=== PATIENT | female | born 1940 | race African-American/Black ===

== ENCOUNTER 2017-01-16 00:43 | Inpatient (IN) | payer OTHER, MEDICAID ==
[~2017-01-16] VITALS: Ht 171.4 cm; Wt 69.4 kg
[~2017-01-16 00:43] MED LIST: CHLO25TA27 PO; CLON0.1T PO; CLON0.3T TD; CLOP75TA33 PO; LOSA100T14 PO; METO100T5 PO; OMEP20CA10 PO
[2017-01-16] MEDS ORDERED: ASPIRIN 81MG TABLET PO ONE (01:00)
[2017-01-16] MEDS ORDERED: NITROGLYCERIN OINT 1GM/INCH UDPKT TD ONE (01:00)
[2017-01-16 01:18] LABS: CLARITY URINE CLEAR (CLEAR); COLOR URINE YELLOW (YELLOW); GLUCOSE URINE NEGATIVE (NEGATIVE); KETONES URINE NEGATIVE (NEGATIVE); LEUKOCYTE ESTERASE URINE NEGATIVE (NEGATIVE); NITRITE URINE NEGATIVE (NEGATIVE); OCCULT BLOOD URINE TRACE (NEGATIVE); PH URINE 5.5 (4.5-8.0); PROTEIN URINE NEGATIVE (NEGATIVE); SPECIFIC GRAVITY URINE 1.009 (1.005-1.030); UROBILINOGEN URINE 0.2 E.U./dL (0.2-1.0)
[2017-01-16 01:26] LABS: *AMPHETAMINES SCREEN URINE NEGATIVE (NEGATIVE); *BARBITURATES SCREEN URINE NEGATIVE (NEGATIVE); *BENZODIAZEPINES SCREEN URINE NEGATIVE (NEGATIVE); *COCAINE SCREEN URINE NEGATIVE (NEGATIVE); CANNABINOID URINE SCREEN NEGATIVE (NEGATIVE); METHADONE URINE SCREEN NEGATIVE (NEGATIVE); OPIATES URINE SCREEN NEGATIVE (NEGATIVE); PHENCYCLIDINE URINE SCREEN NEGATIVE (NEGATIVE)
[2017-01-16 01:30] LABS: BASOPHILS % 0.7 % (0.0-2.0); HEMOGLOBIN. 12.5 g/dL (12.0-16.0); LYMPHOCYTES % 45.6 % (20.0-50.0); MEAN CORPUSCULAR HEMOGLOBIN 30.7 pg (28.0-32.0); MEAN CORPUSCULAR VOLUME 90.6 fL (81.0-99.0); MEAN PLATELET VOLUME 7.4 fl (7.4-10.4); MONOCYTES % 11.2 % (2.0-8.0); NEUTROPHILS % 38.5 % (40.0-76.0); PLATELET 223 x1000/uL (130-400); RED BLOOD CELL COUNT 4.08 mill/uL (4.2-5.4)
[2017-01-16 01:40] LABS: D-DIMER 0.29 mg/L FEU (<0.50); PARTIAL THROMBOPLASTIN TIME 27.9 sec (23.4-31.0); PROTHROMBIN TIME 10.9 sec (9.4-11.6)
[2017-01-16 01:41] LABS: CARBON DIOXIDE 28 mEq/L (21-32); CHLORIDE 99 mEq/L (98-107); ETHANOL BLOOD < 10 mg/dL; TROPONIN I < 0.02 ng/mL (0.00-0.04)
[2017-01-16] MEDS ORDERED: LABETALOL HCL 20MG/4ML CARPUJECT IV ONE (02:15)
[2017-01-16] MEDS ORDERED: ACETAMINOPHEN 325MG TABLET PO PRN (05:30)
[2017-01-16] MEDS ORDERED: IPRATROPIUM/ALBUTEROL 0.5-3(2.5)MG/3ML NEB INH PRN (05:30)
[2017-01-16] MEDS ORDERED: CLONIDINE HCL 0.1MG/24HR PATCH TD ONE (05:30)
[2017-01-16] MEDS ORDERED: CLONIDINE 0.1MG TABLET PO SCH (07:50)
[2017-01-16 08:21] LABS: BASOPHILS % 1.2 % (0.0-2.0); EOSINOPHILS % 1.2 % (0.0-5.0); HEMATOCRIT. 40.1 % (36.0-48.0); HEMOGLOBIN. 13.5 g/dL (12.0-16.0); LYMPHOCYTES % 48.7 % (20.0-50.0); MEAN CORPUSCULAR HEMOGLOBIN 30.3 pg (28.0-32.0); MEAN CORPUSCULAR VOLUME 89.8 fL (81.0-99.0); MEAN PLATELET VOLUME 7.4 fl (7.4-10.4); MONOCYTES % 9.9 % (2.0-8.0); PLATELET 237 x1000/uL (130-400); RED BLOOD CELL COUNT 4.46 mill/uL (4.2-5.4); RED CELL DISTRIBUTION WIDTH 14.3 % (11.6-14.6)
[2017-01-16 08:33] LABS: CARBON DIOXIDE 25 mEq/L (21-32); CHLORIDE 103 mEq/L (98-107); HDL CHOLESTEROL 63 mg/dL (40-59); LDL CHOLESTEROL 82 mg/dL (5-100); TROPONIN I < 0.02 ng/mL (0.00-0.04)
[2017-01-16 09:00] VITALS: BP 147/69
[2017-01-16] MEDS ORDERED: CLOPIDOGREL 75MG TABLET PO SCH (09:00)
[2017-01-16] MEDS ORDERED: LOSARTAN POTASSIUM 100 MG TABLET PO SCH (09:00)
[2017-01-16] MEDS ORDERED: CLONIDINE 0.1MG TABLET PO PRN (09:19)
[2017-01-16] MEDS: SODIUM CHLORIDE 0.9% INJ 3ML FLUSH IVF SCH ×2 (09:50→13:06)
[2017-01-16] MEDS ORDERED: ENOXAPARIN 40MG/0.4ML SYR SUBCUT SCH (10:00)
[2017-01-16] MEDS ORDERED: METOPROLOL TARTRATE 100MG TABLET PO SCH (10:00)
[2017-01-16] MEDS ORDERED: OMEPRAZOLE 20MG CAPSULE EXTENDED RELEASE PO SCH (10:00)
[2017-01-16] MEDS ORDERED: DEXTROSE 50% WATER 50ML SYRINGE IV PRN (10:30)
[2017-01-16] MEDS: BLOOD SUGAR DIAGNOSTIC STRIP TEST SCH ×2 (12:33→17:01)
[2017-01-16] MEDS: INSULIN LISPRO 100 UNITS/ML SUBCUT SCH ×2 (13:06→17:01)
[2017-01-16 15:25] VITALS: BP 158/67
[2017-01-16 17:18] VITALS: BP 155/64
[2017-02-05] MEDS ORDERED: AMLO10TA80 PO (11:20)
[2017-02-05] MEDS ORDERED: HYDR12.54 PO (13:53)
== END 2017-01-16 18:10 | disposition home or self-care (01) | DRG 305 ==
LOC: ER 00:43 → 6WST 02:48 → ENRESERV 06:05 → CANBEDREQ 08:39
PROVIDERS: ADMIT Ophthalmology; ATTEND Ophthalmology
DX: I16.0 Hypertensive urgency (principal); E11.9 Type 2 diabetes mellitus without complications; R07.89 Other chest pain; I10 Essential (primary) hypertension; M19.90 Unspecified osteoarthritis, unspecified site; Z83.3 Family history of diabetes mellitus; Z82.49 Family history of ischemic heart disease and other diseases of the circulatory system; Z88.6 Allergy status to analgesic agent; Z88.0 Allergy status to penicillin; Z88.1 Allergy status to other antibiotic agents; Z88.8 Allergy status to other drugs, medicaments and biological substances
CPT/HCPCS: 36415; 70450; 71010; 80048; 80053; 80061; 80305; 81001; 82962; 83605; 83690; 83880; 84484; 85025; 85379; 85610; 85730; 93005; 96374; 99291; G0482; J1650; J1815; J3490

== ENCOUNTER 2017-01-20 01:51 | Emergency (ER) | payer OTHER, MEDICAID ==
[~2017-01-20] VITALS: Ht 177.8 cm; Wt 79.0 kg
[~2017-01-20 01:51] MED LIST changes: -CLON0.3T TD
[2017-01-20] MEDS ORDERED: ENALAPRIL 2.5MG/2ML VIAL 2ML IV ONE (04:45)
[2017-01-20 04:53] LABS: BASOPHILS % 0.9 % (0.0-2.0); EOSINOPHILS % 1.3 % (0.0-5.0); HEMATOCRIT. 37.6 % (36.0-48.0); HEMOGLOBIN. 12.6 g/dL (12.0-16.0); LYMPHOCYTES % 30.9 % (20.0-50.0); MEAN CORPUSCULAR HEMOGLOBIN 30.4 pg (28.0-32.0); MEAN CORPUSCULAR VOLUME 90.9 fL (81.0-99.0); MEAN PLATELET VOLUME 7.2 fl (7.4-10.4); NEUTROPHILS % 56.9 % (40.0-76.0); PLATELET 210 x1000/uL (130-400); RED BLOOD CELL COUNT 4.14 mill/uL (4.2-5.4); RED CELL DISTRIBUTION WIDTH 14.2 % (11.6-14.6)
[2017-01-20 05:04] LABS: CARBON DIOXIDE 27 mEq/L (21-32); CHLORIDE 103 mEq/L (98-107)
[2017-01-20 09:00] VITALS: BP 196/94
[2017-02-05] MEDS ORDERED: AMLO10TA80 PO (11:20)
[2017-02-05] MEDS ORDERED: HYDR12.54 PO (13:53)
== END 2017-01-20 09:27 | disposition home or self-care (01) ==
LOC: ER 01:51
DX: I10 Essential (primary) hypertension (principal); E11.9 Type 2 diabetes mellitus without complications; F11.10 Opioid abuse, uncomplicated; Z88.0 Allergy status to penicillin; Z88.6 Allergy status to analgesic agent; Z88.1 Allergy status to other antibiotic agents
CPT/HCPCS: 36415; 70450; 71010; 80048; 82962; 85025; 93005; 96374; 99285; J3490

== ENCOUNTER 2017-05-02 02:33 | Emergency (ER) | payer OTHER, MEDICAID ==
[~2017-05-02] VITALS: Ht 170.2 cm; Wt 70.0 kg
[~2017-05-02 02:33] MED LIST changes: +AMLO10TA80 PO; +HYDR12.54 PO; +METO100T16 PO; -METO100T5 PO
[2017-05-02 03:49] LABS: BASOPHILS % 0.7 % (0.0-2.0); EOSINOPHILS % 3.2 % (0.0-5.0); HEMATOCRIT. 36.3 % (36.0-48.0); HEMOGLOBIN. 12.2 g/dL (12.0-16.0); LYMPHOCYTES % 31.4 % (20.0-50.0); MEAN CORPUSCULAR HEMOGLOBIN 30.2 pg (28.0-32.0); MEAN CORPUSCULAR VOLUME 89.5 fL (81.0-99.0); MEAN PLATELET VOLUME 6.7 fl (7.4-10.4); MONOCYTES % 12.6 % (2.0-8.0); NEUTROPHILS % 52.1 % (40.0-76.0); PLATELET 240 x1000/uL (130-400); RED BLOOD CELL COUNT 4.05 mill/uL (4.2-5.4)
[2017-05-02 03:50] LABS: CHLORIDE 93 mEq/L (98-107)
[2017-05-02 06:18] VITALS: BP 150/93
== END 2017-05-02 06:30 | disposition home or self-care (01) ==
LOC: ER 02:40
DX: I11.9 Hypertensive heart disease without heart failure (principal); E11.9 Type 2 diabetes mellitus without complications; Z88.6 Allergy status to analgesic agent; Z88.0 Allergy status to penicillin
CPT/HCPCS: 36415; 80048; 85025; 99284

== ENCOUNTER 2017-10-20 23:10 | Emergency (ER) | payer OTHER, MEDICAID ==
[~2017-10-20] VITALS: Ht 177.8 cm; Wt 68.0 kg
[2017-10-21] MEDS ORDERED: THROMBIN (BOVINE) 5000 UNITS/VIAL TOP ONE (01:15)
[2017-10-21] MEDS ORDERED: CLONIDINE 0.2MG TABLET PO ONE (01:15)
[2017-10-21 04:37] VITALS: BP 138/68
== END 2017-10-21 04:38 | disposition home or self-care (01) ==
LOC: ER 23:10
DX: I16.0 Hypertensive urgency (principal); E11.9 Type 2 diabetes mellitus without complications; I10 Essential (primary) hypertension; R04.0 Epistaxis; Z88.0 Allergy status to penicillin; Z88.8 Allergy status to other drugs, medicaments and biological substances; Z88.5 Allergy status to narcotic agent; Z88.6 Allergy status to analgesic agent
CPT/HCPCS: 82962; 99283; J3490

== ENCOUNTER 2018-01-18 21:38 | Emergency (ER) | payer OTHER, MEDICAID ==
[~2018-01-18] VITALS: Ht 175.3 cm; Wt 75.0 kg
[2018-01-18] MEDS ORDERED: ONDANSETRON HCL 4MG/2ML INJ IV STA (22:41)
[2018-01-18] MEDS ORDERED: MORPHINE SULFATE 4 MG/ML CPJ (NOT FOR IM USE) IV STA (22:41)
[2018-01-18] MEDS ORDERED: CLONIDINE 0.1MG TABLET PO ONE (22:45)
[2018-01-18 23:02] LABS: BASOPHILS % 0.6 % (0.0-2.0); EOSINOPHILS % 2.3 % (0.0-5.0); HEMATOCRIT. 35.5 % (36.0-48.0); HEMOGLOBIN. 12.2 g/dL (12.0-16.0); LYMPHOCYTES % 41.4 % (20.0-50.0); MEAN CORPUSCULAR VOLUME 90.4 fL (81.0-99.0); MEAN PLATELET VOLUME 6.8 fl (7.4-10.4); MONOCYTES % 13.3 % (2.0-8.0); NEUTROPHILS % 42.4 % (40.0-76.0); PLATELET 223 x1000/uL (130-400); RED BLOOD CELL COUNT 3.93 mill/uL (4.2-5.4); RED CELL DISTRIBUTION WIDTH 14.6 % (11.6-14.6)
[2018-01-18 23:10] LABS: CHLORIDE 94 mEq/L (98-107)
[2018-01-19] MEDS ORDERED: ACETAMINOPHEN 325MG TABLET PO ONE (01:45)
[2018-01-19 01:57] VITALS: BP 151/62
== END 2018-01-19 02:03 | disposition home or self-care (01) ==
LOC: ER 21:38
DX: I10 Essential (primary) hypertension (principal); E11.9 Type 2 diabetes mellitus without complications; Z88.0 Allergy status to penicillin; Z88.5 Allergy status to narcotic agent; Z88.6 Allergy status to analgesic agent
CPT/HCPCS: 36415; 70450; 71045; 80048; 85025; 93005; 96374; 99285; J2405; J2270

== ENCOUNTER 2018-03-10 01:40 | Emergency (ER) | payer OTHER, MEDICAID ==
[~2018-03-10] VITALS: Ht 170.2 cm; Wt 73.0 kg
[2018-03-10 02:27] LABS: CHLORIDE 101 mEq/L (98-107)
[2018-03-10 03:04] LABS: BASOPHILS % 0.4 % (0.0-2.0); EOSINOPHILS % 1.3 % (0.0-5.0); HEMATOCRIT. 37.4 % (36.0-48.0); HEMOGLOBIN. 12.7 g/dL (12.0-16.0); LYMPHOCYTES % 37.3 % (20.0-50.0); MEAN CORPUSCULAR HEMOGLOBIN 31.5 pg (28.0-32.0); MEAN PLATELET VOLUME 7.2 fl (7.4-10.4); MONOCYTES % 11.2 % (2.0-8.0); NEUTROPHILS % 49.8 % (40.0-76.0); PLATELET 226 x1000/uL (130-400); RED BLOOD CELL COUNT 4.03 mill/uL (4.2-5.4)
[2018-03-10 03:11] LABS: PROTHROMBIN TIME 10.3 sec (9.1-11.1)
[2018-03-10 03:12] LABS: CLARITY URINE CLEAR (CLEAR); COLOR URINE YELLOW (YELLOW); KETONES URINE NEGATIVE (NEGATIVE); LEUKOCYTE ESTERASE URINE TRACE (NEGATIVE); NITRITE URINE NEGATIVE (NEGATIVE); OCCULT BLOOD URINE 1+ (NEGATIVE); PH URINE 7.5 (4.5-8.0); PROTEIN URINE NEGATIVE (NEGATIVE); SPECIFIC GRAVITY URINE 1.005 (1.005-1.030); UROBILINOGEN URINE 0.2 E.U./dL (0.2-1.0)
[2018-03-10] MEDS ORDERED: CLONIDINE 0.1MG TABLET PO ONE (05:00)
[2018-03-10] MEDS ORDERED: HYDRALAZINE HCL 50MG TABLET PO ONE (05:45)
[2018-03-10 06:23] VITALS: BP 166/73
== END 2018-03-10 06:35 | disposition home or self-care (01) ==
LOC: ER 01:40
DX: R10.30 Lower abdominal pain, unspecified (principal); R30.0 Dysuria; R39.15 Urgency of urination; Z88.0 Allergy status to penicillin; I10 Essential (primary) hypertension; E11.9 Type 2 diabetes mellitus without complications; Z88.1 Allergy status to other antibiotic agents; Z79.82 Long term (current) use of aspirin; Z88.5 Allergy status to narcotic agent; Z88.8 Allergy status to other drugs, medicaments and biological substances; Z79.899 Other long term (current) drug therapy
CPT/HCPCS: 36415; 82962; 99283

== ENCOUNTER 2018-06-15 06:11 | Emergency (ER) | payer MEDICARE, MEDICAID ==
[~2018-06-15] VITALS: Ht 177.8 cm; Wt 91.0 kg
[2018-06-15] MEDS ORDERED: DIAZEPAM 2 MG TABLET PO ONE (07:00)
[2018-06-15 07:23] LABS: CHLORIDE 98 mEq/L (98-107); EOSINOPHILS % 2.2 % (0.0-5.0); HEMATOCRIT. 38.6 % (36.0-48.0); HEMOGLOBIN. 12.9 g/dL (12.0-16.0); LYMPHOCYTES % 38.6 % (20.0-50.0); MEAN CORPUSCULAR VOLUME 92.4 fL (81.0-99.0); MEAN PLATELET VOLUME 7.1 fl (7.4-10.4); MONOCYTES % 10.4 % (2.0-8.0); NEUTROPHILS % 47.8 % (40.0-76.0); PLATELET 268 x1000/uL (130-400); RED BLOOD CELL COUNT 4.18 mill/uL (4.2-5.4)
[2018-06-15 07:23] LABS: CLARITY URINE CLEAR (CLEAR); COLOR URINE YELLOW (YELLOW); KETONES URINE NEGATIVE (NEGATIVE); LEUKOCYTE ESTERASE URINE NEGATIVE (NEGATIVE); NITRITE URINE NEGATIVE (NEGATIVE); OCCULT BLOOD URINE TRACE (NEGATIVE); PH URINE 8.5 (4.5-8.0); PROTEIN URINE TRACE (NEGATIVE); SPECIFIC GRAVITY URINE 1.007 (1.005-1.030); UROBILINOGEN URINE 0.2 E.U./dL (0.2-1.0)
[2018-06-15 07:27] LABS: PARTIAL THROMBOPLASTIN TIME 28.6 sec (23.4-31.0); PROTHROMBIN TIME 10.4 sec (9.1-11.1)
[2018-06-15 10:09] VITALS: BP 169/69
== END 2018-06-15 10:15 | disposition home or self-care (01) ==
LOC: ER 06:11
DX: I10 Essential (primary) hypertension (principal); E11.9 Type 2 diabetes mellitus without complications; Z88.0 Allergy status to penicillin; Z88.6 Allergy status to analgesic agent; Z88.5 Allergy status to narcotic agent
CPT/HCPCS: 36415; 71045; 83880; 84484; 99284

== ENCOUNTER 2018-06-25 03:35 | Emergency (ER) | payer MEDICARE, MEDICAID ==
[~2018-06-25] VITALS: Ht 170.2 cm; Wt 98.4 kg
[2018-06-25] MEDS ORDERED: ACETAMINOPHEN 325MG TABLET PO STA (04:32)
[2018-06-25 04:52] LABS: BASOPHILS % 0.6 % (0.0-2.0); EOSINOPHILS % 2.2 % (0.0-5.0); HEMATOCRIT. 34.1 % (36.0-48.0); HEMOGLOBIN. 11.5 g/dL (12.0-16.0); MEAN CORPUSCULAR HEMOGLOBIN 30.8 pg (28.0-32.0); MEAN CORPUSCULAR VOLUME 91.6 fL (81.0-99.0); MEAN PLATELET VOLUME 6.8 fl (7.4-10.4); MONOCYTES % 13.2 % (2.0-8.0); PLATELET 226 x1000/uL (130-400); RED BLOOD CELL COUNT 3.72 mill/uL (4.2-5.4)
[2018-06-25 04:59] LABS: CHLORIDE 92 mEq/L (98-107)
[2018-06-25 05:01] LABS: INR 1.1; PROTHROMBIN TIME 10.6 sec (9.1-11.1)
[2018-06-25] MEDS ORDERED: SODIUM CHLORIDE 0.9% 500 ML IV ONE (05:15)
[2018-06-25] MEDS ORDERED: POTASSIUM CHLORIDE 20MEQ TABLET SR PO ONE (05:15)
[2018-06-25 09:55] VITALS: BP 142/56
== END 2018-06-25 10:14 | disposition home or self-care (01) ==
LOC: ER 03:35
DX: S29.012A Strain of muscle and tendon of back wall of thorax, initial encounter (principal); E87.1 Hypo-osmolality and hyponatremia; E87.6 Hypokalemia; E11.9 Type 2 diabetes mellitus without complications; I10 Essential (primary) hypertension; E87.8 Other disorders of electrolyte and fluid balance, not elsewhere classified; X58.XXXA Exposure to other specified factors, initial encounter; Y93.89 Activity, other specified; Y92.89 Other specified places as the place of occurrence of the external cause; Y99.8 Other external cause status; Z88.0 Allergy status to penicillin; Z88.6 Allergy status to analgesic agent; Z88.5 Allergy status to narcotic agent; Z88.8 Allergy status to other drugs, medicaments and biological substances; Z79.899 Other long term (current) drug therapy
CPT/HCPCS: 36415; 71045; 83880; 84484; 93005; 99284

== ENCOUNTER 2018-07-01 03:21 | Emergency (ER) | payer MEDICARE, MEDICAID ==
[~2018-07-01] VITALS: Ht 170.2 cm; Wt 72.0 kg
[2018-07-01] MEDS ORDERED: ACETAMINOPHEN 325MG TABLET PO STA (05:38)
[2018-07-01 06:13] LABS: CLARITY URINE CLEAR (CLEAR); COLOR URINE YELLOW (YELLOW); KETONES URINE NEGATIVE (NEGATIVE); LEUKOCYTE ESTERASE URINE TRACE (NEGATIVE); NITRITE URINE NEGATIVE (NEGATIVE); OCCULT BLOOD URINE 1+ (NEGATIVE); PROTEIN URINE NEGATIVE (NEGATIVE); SPECIFIC GRAVITY URINE 1.005 (1.005-1.030); UROBILINOGEN URINE 0.2 E.U./dL (0.2-1.0)
[2018-07-01 06:52] LABS: BASOPHILS % 0.7 % (0.0-2.0); EOSINOPHILS % 1.1 % (0.0-5.0); HEMATOCRIT. 38.5 % (36.0-48.0); MEAN CORPUSCULAR VOLUME 91.7 fL (81.0-99.0); MEAN PLATELET VOLUME 6.9 fl (7.4-10.4); MONOCYTES % 9.5 % (2.0-8.0); NEUTROPHILS % 36.7 % (40.0-76.0); PLATELET 251 x1000/uL (130-400)
[2018-07-01 06:58] LABS: CHLORIDE 95 mEq/L (98-107)
[2018-07-01] MEDS ORDERED: POTASSIUM CHLORIDE 20MEQ TABLET SR PO ONE (07:45)
[2018-07-01 09:00] VITALS: BP 179/83
[2018-07-01] MEDS ORDERED: IOHEXOL-300 100 ML BOTTLE ONE (09:16)
== END 2018-07-01 11:19 | disposition home or self-care (01) ==
LOC: ER 03:21
DX: R10.2 Pelvic and perineal pain (principal); E27.8 Other specified disorders of adrenal gland; E87.6 Hypokalemia; I11.9 Hypertensive heart disease without heart failure; E11.9 Type 2 diabetes mellitus without complications; D25.9 Leiomyoma of uterus, unspecified; Z88.0 Allergy status to penicillin; Z88.5 Allergy status to narcotic agent; Z88.6 Allergy status to analgesic agent
CPT/HCPCS: 36415; 74177; 80053; 81003; 83690; 85025; 99284; Q9967

== ENCOUNTER 2018-08-28 01:23 | Emergency (ER) | payer MEDICARE, MEDICAID ==
[~2018-08-28] VITALS: Ht 177.8 cm; Wt 67.0 kg
[2018-08-28] MEDS ORDERED: ACETAMINOPHEN 500MG TABLET PO ONE (02:15)
[2018-08-28 02:38] LABS: BASOPHILS % 0.2 % (0.0-2.0); EOSINOPHILS % 3.6 % (0.0-5.0); HEMATOCRIT. 35.3 % (36.0-48.0); HEMOGLOBIN. 12.3 g/dL (12.0-16.0); LYMPHOCYTES % 37.2 % (20.0-50.0); MEAN CORPUSCULAR HEMOGLOBIN 31.4 pg (28.0-32.0); MEAN CORPUSCULAR VOLUME 90.6 fL (81.0-99.0); MEAN PLATELET VOLUME 7.4 fl (7.4-10.4); MONOCYTES % 14.4 % (2.0-8.0); NEUTROPHILS % 44.6 % (40.0-76.0); PLATELET 232 x1000/uL (130-400); RED CELL DISTRIBUTION WIDTH 13.7 % (11.6-14.6)
[2018-08-28 02:45] LABS: CHLORIDE 102 mEq/L (98-107)
[2018-08-28 07:34] VITALS: BP 169/76
== END 2018-08-28 07:35 | disposition home or self-care (01) ==
LOC: ER 01:23
DX: M25.551 Pain in right hip (principal); M25.561 Pain in right knee; I10 Essential (primary) hypertension
CPT/HCPCS: 36415; 71045; 80048; 99284

== ENCOUNTER 2019-01-23 02:11 | Emergency (ER) | payer MEDICARE, MEDICAID ==
[~2019-01-23] VITALS: Ht 172.7 cm; Wt 81.0 kg
[~2019-01-23 02:11] MED LIST changes: -LOSA100T14 PO; +LOSA100T32 PO; -OMEP20CA10 PO; +OMEP20CA5 PO
[2019-01-23] MEDS ORDERED: ACETAMINOPHEN 500MG TABLET PO ONE (04:00)
[2019-01-23 04:32] VITALS: BP 189/70
== END 2019-01-23 04:34 | disposition home or self-care (01) ==
LOC: ER 02:11
DX: I10 Essential (primary) hypertension (principal); J45.909 Unspecified asthma, uncomplicated; E11.9 Type 2 diabetes mellitus without complications; I11.9 Hypertensive heart disease without heart failure; Z88.0 Allergy status to penicillin; Z88.1 Allergy status to other antibiotic agents; Z88.6 Allergy status to analgesic agent; Z88.5 Allergy status to narcotic agent; Z79.899 Other long term (current) drug therapy
CPT/HCPCS: 99283

== ENCOUNTER 2019-01-24 17:54 | Emergency (ER) | payer MEDICARE, MEDICAID ==
[~2019-01-24] VITALS: Ht 170.2 cm; Wt 72.0 kg
[2019-01-24] MEDS ORDERED: ACETAMINOPHEN 325MG TABLET PO STA (18:14)
[2019-01-24 19:14] LABS: CHLORIDE 103 mEq/L (98-107)
[2019-01-24 19:16] LABS: BASOPHILS % 0.6 % (0.0-2.0); EOSINOPHILS % 2.9 % (0.0-5.0); HEMATOCRIT. 38.9 % (36.0-48.0); HEMOGLOBIN. 12.9 g/dL (12.0-16.0); LYMPHOCYTES % 37.9 % (20.0-50.0); MEAN CORPUSCULAR HEMOGLOBIN 30.3 pg (28.0-32.0); MEAN PLATELET VOLUME 7.6 fl (7.4-10.4); MONOCYTES % 10.1 % (2.0-8.0); NEUTROPHILS % 48.5 % (40.0-76.0); PLATELET 243 x1000/uL (130-400); RED BLOOD CELL COUNT 4.27 mill/uL (4.2-5.4); RED CELL DISTRIBUTION WIDTH 14.1 % (11.6-14.6)
[2019-01-24] MEDS ORDERED: ACETAMINOPHEN 325MG TABLET PO ONE (22:00)
[2019-01-24 22:02] VITALS: BP 138/61
== END 2019-01-24 23:03 | disposition home or self-care (01) ==
LOC: ER 17:54
DX: E11.40 Type 2 diabetes mellitus with diabetic neuropathy, unspecified (principal); I10 Essential (primary) hypertension; Z88.6 Allergy status to analgesic agent; Z88.5 Allergy status to narcotic agent; Z88.0 Allergy status to penicillin
CPT/HCPCS: 36415; 99283

== ENCOUNTER 2019-02-24 07:05 | Emergency (ER) | payer MEDICARE, MEDICAID ==
[~2019-02-24] VITALS: Ht 180.3 cm; Wt 82.0 kg
[2019-02-24 09:50] VITALS: BP 141/120
== END 2019-02-24 10:30 | disposition home or self-care (01) ==
LOC: ER 07:16
DX: R04.0 Epistaxis (principal); I10 Essential (primary) hypertension; E11.9 Type 2 diabetes mellitus without complications; J44.9 Chronic obstructive pulmonary disease, unspecified; Z88.6 Allergy status to analgesic agent; Z88.0 Allergy status to penicillin; Z88.5 Allergy status to narcotic agent
CPT/HCPCS: 99283

== ENCOUNTER 2019-04-01 05:36 | Inpatient (IN) | payer MEDICARE, MEDICAID ==
[~2019-04-01] VITALS: Ht 170.2 cm; Wt 77.6 kg
[2019-04-01 06:33] LABS: CLARITY URINE CLEAR (CLEAR); COLOR URINE YELLOW (YELLOW); KETONES URINE NEGATIVE (NEGATIVE); LEUKOCYTE ESTERASE URINE NEGATIVE (NEGATIVE); NITRITE URINE POSITIVE (NEGATIVE); OCCULT BLOOD URINE TRACE (NEGATIVE); PH URINE 7.5 (4.5-8.0); PROTEIN URINE NEGATIVE (NEGATIVE); SPECIFIC GRAVITY URINE 1.008 (1.005-1.030); UROBILINOGEN URINE 0.2 E.U./dL (0.2-1.0)
[2019-04-01 06:34] LABS: BASOPHILS % 1.1 % (0.0-2.0); EOSINOPHILS % 2.6 % (0.0-5.0); HEMATOCRIT. 39.7 % (36.0-48.0); HEMOGLOBIN. 13.3 g/dL (12.0-16.0); LYMPHOCYTES % 42.5 % (20.0-50.0); MEAN CORPUSCULAR HEMOGLOBIN 30.4 pg (28.0-32.0); MEAN CORPUSCULAR VOLUME 90.6 fL (81.0-99.0); MEAN PLATELET VOLUME 7.1 fl (7.4-10.4); MONOCYTES % 8.6 % (2.0-8.0); NEUTROPHILS % 45.2 % (40.0-76.0); PLATELET 258 x1000/uL (130-400); RED BLOOD CELL COUNT 4.38 mill/uL (4.2-5.4); RED CELL DISTRIBUTION WIDTH 14.6 % (11.6-14.6)
[2019-04-01] MEDS ORDERED: ALBUTEROL (0.083%) 2.5MG/3ML NEB HHN STA (06:36)
[2019-04-01] MEDS ORDERED: IPRATROPIUM BROMIDE (0.02%) 0.5MG/2.5ML NEB HHN STA (06:36)
[2019-04-01] MEDS ORDERED: LABETALOL HCL 200MG TABLET PO STA (06:36)
[2019-04-01 06:39] LABS: PROTHROMBIN TIME 10.4 sec (9.6-11.0)
[2019-04-01 06:43] LABS: CHLORIDE 106 mEq/L (98-107)
[2019-04-01] MEDS ORDERED: MINOXIDIL 2.5MG TABLET PO ONE (06:45)
[2019-04-01] MEDS ORDERED: MAGNESIUM 2 G PREMIX 50 ML IV ONE (06:45)
[2019-04-01] MEDS ORDERED: LEVOFLOXACIN 500MG PREMIX 100 ML IV ONE (06:45)
[2019-04-01] MEDS ORDERED: NIFEDIPINE XL 60MG TAB PO ONE (06:45)
[2019-04-01] MEDS ORDERED: GLIPIZIDE XL 2.5MG TABLET PO ONE (08:00)
[2019-04-01] MEDS ORDERED: SODIUM CHLORIDE 0.9% 1,000 ML IV SCH (10:37)
[2019-04-01] MEDS ORDERED: CLONIDINE 0.1MG TABLET PO PRN (10:45)
[2019-04-01] MEDS ORDERED: ONDANSETRON HCL 4MG/2ML INJ IV PRN (10:45)
[2019-04-01] MEDS ORDERED: GUAIFENESIN 200MG/10ML SUGAR FREE UDC PO PRN (10:45)
[2019-04-01] MEDS ORDERED: DOCUSATE SODIUM 100MG CAPSULE PO PRN (10:45)
[2019-04-01] MEDS ORDERED: IPRATROPIUM/ALBUTEROL 0.5-3(2.5)MG/3ML NEB HHN SCH (10:45)
[2019-04-01] MEDS ORDERED: ENOXAPARIN 40MG/0.4ML SYR SUBCUT SCH (10:45)
[2019-04-01] MEDS: OMEPRAZOLE 20MG CAPSULE EXTENDED RELEASE PO SCH (11:15)
[2019-04-01] MEDS ORDERED: LOSARTAN POTASSIUM 100 MG TABLET PO SCH (11:15)
[2019-04-01] MEDS ORDERED: CLONIDINE 0.1MG TABLET PO SCH (11:15)
[2019-04-01] MEDS ORDERED: DEXTROSE 50% WATER 50ML SYRINGE IV PRN (11:30)
[2019-04-01] MEDS ORDERED: ENOXAPARIN 40MG/0.4ML SYR SUBCUT NR (12:00)
[2019-04-01] MEDS ORDERED: OMEPRAZOLE 20MG CAPSULE EXTENDED RELEASE PO NR (12:00)
[2019-04-01] MEDS: BLOOD SUGAR DIAGNOSTIC STRIP TEST SCH ×3 (13:00→20:44)
[2019-04-01] MEDS ORDERED: LOSARTAN POTASSIUM 100 MG TABLET PO NR (13:00)
[2019-04-01] MEDS: INSULIN LISPRO 100 UNITS/ML SUBCUT SCH ×3 (13:20→21:21)
[2019-04-01] MEDS: METHYLPREDNISOLONE SOD SUCC 40 MG/ML VIAL IV SCH ×2 (14:30→18:41)
[2019-04-01] MEDS: ACETAMINOPHEN 325MG TABLET PO PRN (14:42)
[2019-04-01 17:45] VITALS: BP 146/73
[2019-04-01 20:00] VITALS: BP 122/61
[2019-04-01] MEDS: ENOXAPARIN 40MG/0.4ML SYR SUBCUT SCH (20:43)
[2019-04-01] MEDS: METOPROLOL TARTRATE 100MG TABLET PO SCH (20:43)
[2019-04-01] MEDS: IPRATROPIUM/ALBUTEROL 0.5-3(2.5)MG/3ML NEB HHN SCH (21:30)
[2019-04-01 22:07] LABS: CREATINE KINASE 52 IU/L (26-192)
[2019-04-01 22:08] LABS: CREATINE KINASE MB FRACTION < 1.0 ng/mL (0.5-3.6)
[2019-04-01] MEDS ORDERED: LOSA25TA26 PO (23:34)
[2019-04-01] MEDS ORDERED: GABA-529 PO (23:34)
[2019-04-01] MEDS ORDERED: CLON1PAT11 TP (23:34)
[2019-04-01] MEDS ORDERED: LISI2.5T47 PO (23:34)
[2019-04-01] MEDS ORDERED: NIFE60TA64 PO (23:34)
[2019-04-01] MEDS ORDERED: AMA1 PO (23:34)
[2019-04-02] VITALS: BP 130/62
[2019-04-02] MEDS: IPRATROPIUM/ALBUTEROL 0.5-3(2.5)MG/3ML NEB HHN SCH ×6 (00:54→21:55)
[2019-04-02] MEDS: METHYLPREDNISOLONE SOD SUCC 40 MG/ML VIAL IV SCH ×4 (01:45→18:24)
[2019-04-02] MEDS: ACETAMINOPHEN 325MG TABLET PO PRN ×2 (03:54→22:14)
[2019-04-02 04:00] VITALS: BP 175/77
[2019-04-02] MEDS: BLOOD SUGAR DIAGNOSTIC STRIP TEST SCH ×4 (06:08→21:47)
[2019-04-02] MEDS: INSULIN LISPRO 100 UNITS/ML SUBCUT SCH ×4 (06:13→22:18)
[2019-04-02 07:58] LABS: BASOPHILS % 0.1 % (0.0-2.0); HEMATOCRIT. 33.5 % (36.0-48.0); HEMOGLOBIN. 11.2 g/dL (12.0-16.0); LYMPHOCYTES % 27.5 % (20.0-50.0); MEAN CORPUSCULAR HEMOGLOBIN 30.2 pg (28.0-32.0); MEAN CORPUSCULAR VOLUME 90.3 fL (81.0-99.0); MEAN PLATELET VOLUME 7.5 fl (7.4-10.4); MONOCYTES % 2.3 % (2.0-8.0); NEUTROPHILS % 70.1 % (40.0-76.0); PLATELET 218 x1000/uL (130-400); RED BLOOD CELL COUNT 3.71 mill/uL (4.2-5.4); RED CELL DISTRIBUTION WIDTH 14.6 % (11.6-14.6)
[2019-04-02 08:00] VITALS: BP 170/79
[2019-04-02 08:36] LABS: CHLORIDE 106 mEq/L (98-107)
[2019-04-02] MEDS ORDERED: HYDROCHLOROTHIAZIDE 12.5MG CAPSULE PO SCH (09:00)
[2019-04-02] MEDS ORDERED: MEDICATION NOT ON FORMULARY EA (Hydrochlorothiazide 1 TAB) PO SCH (09:00)
[2019-04-02] MEDS ORDERED: LEVOFLOXACIN 500MG PREMIX 100 ML IV SCH (09:00)
[2019-04-02] MEDS ORDERED: AMLODIPINE 10MG TABLET PO SCH (09:00)
[2019-04-02] MEDS: OMEPRAZOLE 20MG CAPSULE EXTENDED RELEASE PO SCH (09:54)
[2019-04-02] MEDS: CLOPIDOGREL 75MG TABLET PO SCH (09:55)
[2019-04-02] MEDS: METOPROLOL TARTRATE 100MG TABLET PO SCH ×2 (09:55→21:38)
[2019-04-02] MEDS: LOSARTAN POTASSIUM 100 MG TABLET PO SCH (09:55)
[2019-04-02] MEDS: CHLORTHALIDONE 25MG TABLET PO SCH (10:07)
[2019-04-02 12:00] VITALS: BP 173/86
[2019-04-02] MEDS: CLONIDINE 0.1MG TABLET PO SCH ×2 (14:52→21:38)
[2019-04-02 16:00] VITALS: BP 166/78
[2019-04-02 20:00] VITALS: BP 161/67
[2019-04-02] MEDS: ENOXAPARIN 40MG/0.4ML SYR SUBCUT SCH (21:40)
[2019-04-02] MEDS ORDERED: ACETAMINOPHEN 650MG/20.3ML UDC PO PRN (22:00)
[2019-04-03] VITALS: BP 148/60
[2019-04-03] MEDS: METHYLPREDNISOLONE SOD SUCC 40 MG/ML VIAL IV SCH ×3 (00:27→13:43)
[2019-04-03 04:00] VITALS: BP 171/72
[2019-04-03] MEDS: IPRATROPIUM/ALBUTEROL 0.5-3(2.5)MG/3ML NEB HHN SCH ×4 (05:10→13:03)
[2019-04-03] MEDS: ACETAMINOPHEN 325MG TABLET PO PRN (05:57)
[2019-04-03] MEDS: CLONIDINE 0.1MG TABLET PO SCH ×2 (05:58→13:43)
[2019-04-03] MEDS: BLOOD SUGAR DIAGNOSTIC STRIP TEST SCH ×2 (06:04→12:21)
[2019-04-03 08:00] VITALS: BP 188/80
[2019-04-03] MEDS ORDERED: FAMOTIDINE 20MG TABLET PO SCH (09:00)
[2019-04-03] MEDS ORDERED: LEVOFLOXACIN 500MG PREMIX 100 ML IV SCH (09:00)
[2019-04-03] MEDS: INSULIN LISPRO 100 UNITS/ML SUBCUT SCH ×2 (09:28→13:48)
[2019-04-03] MEDS: CLOPIDOGREL 75MG TABLET PO SCH (09:31)
[2019-04-03] MEDS: METOPROLOL TARTRATE 100MG TABLET PO SCH (09:32)
[2019-04-03] MEDS: LOSARTAN POTASSIUM 100 MG TABLET PO SCH (09:32)
[2019-04-03] MEDS: CHLORTHALIDONE 25MG TABLET PO SCH (09:32)
[2019-04-03 12:00] VITALS: BP 173/82
[2019-04-03] MEDS ORDERED: HYDRALAZINE HCL 50MG TABLET PO SCH (14:00)
[2019-04-03 14:28] VITALS: BP_SYST 154; BP_SYST 173; BP_DIAS 68; BP_DIAS 82
== END 2019-04-03 16:38 | disposition home or self-care (01) | DRG 192 ==
LOC: ER 05:36 → 7WST 07:54 → EDBEDREQ 08:06 → EDBEDREQTM 08:06 → ENRESERV 16:50
PROVIDERS: ADMIT Internal Medicine; ATTEND Internal Medicine
DX: J44.1 Chronic obstructive pulmonary disease with (acute) exacerbation (principal); E78.5 Hyperlipidemia, unspecified; I10 Essential (primary) hypertension; F16.10 Hallucinogen abuse, uncomplicated; E11.9 Type 2 diabetes mellitus without complications; M19.90 Unspecified osteoarthritis, unspecified site; Z59.0 Homelessness; Z87.891 Personal history of nicotine dependence; Z88.0 Allergy status to penicillin; Z79.899 Other long term (current) drug therapy
CPT/HCPCS: 36415; 71045; 80048; 80053; 81003; 82550; 82553; 82962; 83605; 83880; 84145; 84484; 85025; 87804; 93005; 93970; 96365; 96367; 97162; 99291; J1650; J1815; J1956; J2920; J3475; J7620

== ENCOUNTER 2019-04-04 23:58 | Emergency (ER) | payer MEDICARE, MEDICAID ==
[~2019-04-04] VITALS: Ht 167.6 cm; Wt 68.0 kg
[~2019-04-04 23:58] MED LIST changes: +AMA1 PO; -AMLO10TA80 PO; -CHLO25TA27 PO; -CLON0.1T PO; +CLON1PAT11 TP; -CLOP75TA33 PO; +GABA-529 PO; -HYDR12.54 PO; +LISI2.5T47 PO; -LOSA100T32 PO; +LOSA25TA26 PO; -METO100T16 PO; +NIFE-32 PO; +OMEP20CA14 PO; -OMEP20CA5 PO
[2019-04-05] MEDS ORDERED: IPRATROPIUM/ALBUTEROL 0.5-3(2.5)MG/3ML NEB HHN ONE (01:00)
[2019-04-05] MEDS ORDERED: ASPIRIN 81MG TABLET PO ONE (01:00)
[2019-04-05 01:11] LABS: BASOPHILS % 0.8 % (0.0-2.0); HEMATOCRIT. 38.6 % (36.0-48.0); HEMOGLOBIN. 12.9 g/dL (12.0-16.0); LYMPHOCYTES % 40.2 % (20.0-50.0); MEAN CORPUSCULAR HEMOGLOBIN 30.1 pg (28.0-32.0); MEAN PLATELET VOLUME 7.3 fl (7.4-10.4); MONOCYTES % 12.3 % (2.0-8.0); NEUTROPHILS % 45.7 % (40.0-76.0); PLATELET 237 x1000/uL (130-400); RED BLOOD CELL COUNT 4.28 mill/uL (4.2-5.4); RED CELL DISTRIBUTION WIDTH 14.7 % (11.6-14.6)
[2019-04-05 01:13] LABS: CHLORIDE 92 mEq/L (98-107)
[2019-04-05] MEDS ORDERED: POTASSIUM CHLORIDE 20MEQ TABLET SR PO ONE (01:45)
[2019-04-05] MEDS ORDERED: SODIUM CHLORIDE 0.9% 1,000 ML IV ONE (01:45)
[2019-04-05] MEDS ORDERED: KCL 20MEQ/100ML PREMIX 100 ML IV ONE (01:45)
[2019-04-05 09:49] VITALS: BP 129/63
== END 2019-04-05 09:50 | disposition home or self-care (01) ==
LOC: ER 23:58
DX: R07.9 Chest pain, unspecified (principal); E87.6 Hypokalemia; J44.9 Chronic obstructive pulmonary disease, unspecified; E78.5 Hyperlipidemia, unspecified; I10 Essential (primary) hypertension; E11.9 Type 2 diabetes mellitus without complications; I25.10 Atherosclerotic heart disease of native coronary artery without angina pectoris
CPT/HCPCS: 36415; 71045; 80053; 82962; 83880; 84484; 85025; 93005; 94640; 99284; J3480; J7030; J7620

== ENCOUNTER 2019-06-04 22:47 | Emergency (ER) | payer MEDICARE, MEDICAID ==
[~2019-06-04] VITALS: Ht 170.2 cm; Wt 68.0 kg
[2019-06-05] MEDS ORDERED: IPRATROPIUM BROMIDE (0.02%) 0.5MG/2.5ML NEB HHN STA (00:01)
[2019-06-05] MEDS ORDERED: ALBUTEROL (0.083%) 2.5MG/3ML NEB HHN STA (00:01)
[2019-06-05 00:36] LABS: BASOPHILS % 1.2 % (0.0-2.0); EOSINOPHILS % 2.7 % (0.0-5.0); HEMATOCRIT. 38.1 % (36.0-48.0); HEMOGLOBIN. 12.7 g/dL (12.0-16.0); LYMPHOCYTES % 34.1 % (20.0-50.0); MEAN CORPUSCULAR HEMOGLOBIN 30.4 pg (28.0-32.0); MEAN CORPUSCULAR VOLUME 91.5 fL (81.0-99.0); MEAN PLATELET VOLUME 7.4 fl (7.4-10.4); MONOCYTES % 10.8 % (2.0-8.0); NEUTROPHILS % 51.2 % (40.0-76.0); PLATELET 251 x1000/uL (130-400); RED BLOOD CELL COUNT 4.16 mill/uL (4.2-5.4); RED CELL DISTRIBUTION WIDTH 14.5 % (11.6-14.6)
[2019-06-05 01:41] LABS: CHLORIDE 106 mEq/L (98-107)
[2019-06-05] MEDS ORDERED: ACETAMINOPHEN 325MG TABLET PO ONE (03:45)
[2019-06-05] MEDS ORDERED: CLONIDINE 0.1MG TABLET PO ONE (04:00)
[2019-06-05 05:50] VITALS: BP 133/70
== END 2019-06-05 06:44 | disposition home or self-care (01) ==
LOC: ER 22:47
DX: R51 Headache (principal); I10 Essential (primary) hypertension; R10.9 Unspecified abdominal pain; E11.9 Type 2 diabetes mellitus without complications; R07.89 Other chest pain; Z88.0 Allergy status to penicillin; Z88.8 Allergy status to other drugs, medicaments and biological substances; Z79.82 Long term (current) use of aspirin; Z79.899 Other long term (current) drug therapy
CPT/HCPCS: 36415; 71045; 80053; 83880; 84484; 85025; 93005; 94640; 99285

== ENCOUNTER 2019-10-23 00:15 | Emergency (ER) | payer MEDICAID, MEDICARE ==
[~2019-10-23] VITALS: Ht 170.2 cm; Wt 73.0 kg
[~2019-10-23 00:15] MED LIST changes: +ALBU05 NEB; +ASPI-1158 PO; +CLON0.1T PO; +HYDR12.54 PO; +LABE200T28 PO; -LISI2.5T47 PO; +P50 MT; +POTA8CAP20 PO
[2019-10-23] MEDS ORDERED: ACETAMINOPHEN 325MG TABLET PO STA (01:12)
[2019-10-23 01:55] LABS: BASOPHILS % 0.5 % (0.0-2.0); EOSINOPHILS % 3.9 % (0.0-5.0); HEMATOCRIT. 34.7 % (36.0-48.0); HEMOGLOBIN. 11.7 g/dL (12.0-16.0); LYMPHOCYTES % 35.5 % (20.0-50.0); MEAN CORPUSCULAR HEMOGLOBIN 30.9 pg (28.0-32.0); MEAN CORPUSCULAR VOLUME 91.7 fL (81.0-99.0); MEAN PLATELET VOLUME 7.4 fl (7.4-10.4); NEUTROPHILS % 49.1 % (40.0-76.0); PLATELET 244 x1000/uL (130-400); RED BLOOD CELL COUNT 3.78 mill/uL (4.2-5.4); RED CELL DISTRIBUTION WIDTH 14.3 % (11.6-14.6)
[2019-10-23 01:59] LABS: CHLORIDE 106 mEq/L (98-107)
[2019-10-23 02:16] LABS: CLARITY URINE CLEAR (CLEAR); COLOR URINE YELLOW (YELLOW); KETONES URINE NEGATIVE (NEGATIVE); LEUKOCYTE ESTERASE URINE NEGATIVE (NEGATIVE); NITRITE URINE NEGATIVE (NEGATIVE); OCCULT BLOOD URINE TRACE (NEGATIVE); PH URINE 5.5 (4.5-8.0); PROTEIN URINE NEGATIVE (NEGATIVE); SPECIFIC GRAVITY URINE 1.009 (1.005-1.030); UROBILINOGEN URINE 0.2 E.U./dL (0.2-1.0)
[2019-10-23 08:03] VITALS: BP 187/76
== END 2019-10-23 08:39 | disposition home or self-care (01) ==
LOC: ER 00:15
DX: M79.89 Other specified soft tissue disorders (principal); R30.0 Dysuria; E11.9 Type 2 diabetes mellitus without complications; I10 Essential (primary) hypertension; J44.9 Chronic obstructive pulmonary disease, unspecified; Z88.0 Allergy status to penicillin; Z88.8 Allergy status to other drugs, medicaments and biological substances; Z88.1 Allergy status to other antibiotic agents; Z88.6 Allergy status to analgesic agent; Z79.899 Other long term (current) drug therapy; Z79.82 Long term (current) use of aspirin
CPT/HCPCS: 36415; 80053; 81003; 82962; 85025; 93971; 99285

== ENCOUNTER 2020-03-06 01:48 | Emergency (ER) | payer MEDICARE, MEDICAID ==
[~2020-03-06] VITALS: Ht 175.3 cm; Wt 64.3 kg
[2020-03-06 03:37] LABS: BASOPHILS % 0.4 % (0.0-2.0); EOSINOPHILS % 1.7 % (0.0-5.0); HEMATOCRIT. 34.6 % (36.0-48.0); HEMOGLOBIN. 11.7 g/dL (12.0-16.0); MEAN CORPUSCULAR HEMOGLOBIN 30.6 pg (28.0-32.0); MEAN CORPUSCULAR VOLUME 90.8 fL (81.0-99.0); MEAN PLATELET VOLUME 7.1 fl (7.4-10.4); MONOCYTES % 10.1 % (2.0-8.0); NEUTROPHILS % 52.8 % (40.0-76.0); PLATELET 250 x1000/uL (130-400); RED BLOOD CELL COUNT 3.81 mill/uL (4.2-5.4); RED CELL DISTRIBUTION WIDTH 14.1 % (11.6-14.6)
[2020-03-06 03:40] LABS: CHLORIDE 92 mEq/L (98-107)
[2020-03-06 04:12] LABS: CLARITY URINE CLEAR (CLEAR); COLOR URINE YELLOW (YELLOW); KETONES URINE NEGATIVE (NEGATIVE); LEUKOCYTE ESTERASE URINE NEGATIVE (NEGATIVE); NITRITE URINE NEGATIVE (NEGATIVE); OCCULT BLOOD URINE TRACE (NEGATIVE); PH URINE 6.5 (4.5-8.0); PROTEIN URINE NEGATIVE (NEGATIVE); UROBILINOGEN URINE 0.2 E.U./dL (0.2-1.0)
[2020-03-06] MEDS ORDERED: POTASSIUM CHLORIDE 20MEQ TABLET SR PO ONE (05:30)
[2020-03-06] MEDS ORDERED: ACETAMINOPHEN 325MG TABLET PO ONE (05:45)
[2020-03-06 10:54] VITALS: BP 138/89
== END 2020-03-06 11:01 | disposition home or self-care (01) ==
LOC: ER 01:48 → CANBEDREQ 11:06
DX: M79.10 Myalgia, unspecified site (principal); E87.6 Hypokalemia; I10 Essential (primary) hypertension; E11.9 Type 2 diabetes mellitus without complications; Z86.718 Personal history of other venous thrombosis and embolism; Z99.3 Dependence on wheelchair; Z88.6 Allergy status to analgesic agent; Z88.0 Allergy status to penicillin; Z88.5 Allergy status to narcotic agent
CPT/HCPCS: 36415; 71045; 80053; 81003; 83605; 83880; 84484; 85025; 87426; 87804; 93005; 99285

== ENCOUNTER 2020-08-26 13:15 | Inpatient (IN) | payer OTHER, MEDICAID ==
[~2020-08-26] VITALS: Ht 170.2 cm; Wt 72.6 kg
[~2020-08-26 13:15] MED LIST changes: -ASPI-1158 PO; +ASPI-1406 PO; -LABE200T28 PO; +LABE200T9 PO
[2020-08-26] MEDS ORDERED: ACETAMINOPHEN 325MG TABLET PO ONE ×2 (14:15→20:00)
[2020-08-26 17:19] LABS: BASOPHILS % 0.4 % (0.0-2.0); EOSINOPHILS % 2.2 % (0.0-5.0); HEMATOCRIT. 35.1 % (36.0-48.0); HEMOGLOBIN. 11.8 g/dL (12.0-16.0); LYMPHOCYTES % 27.4 % (20.0-50.0); MEAN CORPUSCULAR HEMOGLOBIN 30.7 pg (28.0-32.0); MEAN CORPUSCULAR VOLUME 91.2 fL (81.0-99.0); MEAN PLATELET VOLUME 7.2 fl (7.4-10.4); MONOCYTES % 7.5 % (2.0-8.0); NEUTROPHILS % 62.5 % (40.0-76.0); PLATELET 279 x1000/uL (130-400); RED BLOOD CELL COUNT 3.85 mill/uL (4.2-5.4); RED CELL DISTRIBUTION WIDTH 14.1 % (11.6-14.6)
[2020-08-26 17:27] LABS: CHLORIDE 105 mEq/L (98-107)
[2020-08-26 19:08] LABS: PROTHROMBIN TIME 10.6 sec (9.6-11.0)
[2020-08-26] MEDS ORDERED: CLONIDINE 0.1MG TABLET PO PRN (21:00)
[2020-08-26] MEDS ORDERED: DOCUSATE SODIUM 100MG CAPSULE PO PRN (21:15)
[2020-08-26] MEDS ORDERED: ONDANSETRON HCL 4MG/2ML INJ IV PRN (21:15)
[2020-08-26] MEDS ORDERED: DIPHENHYDRAMINE 50MG/ML VIAL IV PRN (21:15)
[2020-08-26] MEDS ORDERED: MORPHINE SULFATE 2 MG/ML CPJ (NOT FOR IM USE) IV PRN (21:15)
[2020-08-26] MEDS ORDERED: GUAIFENESIN 200MG/10ML SUGAR FREE UDC PO PRN (21:15)
[2020-08-26] MEDS ORDERED: MAGNESIUM/ALUMINUM HYDROXIDE/SIMETHICONE 30ML UDC PO PRN (21:15)
[2020-08-26] MEDS ORDERED: IPRATROPIUM/ALBUTEROL 0.5-3(2.5)MG/3ML NEB HHN PRN (21:15)
[2020-08-26] MEDS: LABETALOL HCL 200MG TABLET PO SCH (21:59)
[2020-08-26 23:45] VITALS: BP 137/61
[2020-08-27] MEDS ORDERED: DEXTROSE 50% WATER 50ML SYRINGE IV PRN ×3 (02:00→22:45)
[2020-08-27] MEDS: ACETAMINOPHEN 325MG TABLET PO PRN ×3 (03:05→18:05)
[2020-08-27 04:00] VITALS: BP 155/57
[2020-08-27] MEDS: OMEPRAZOLE 20MG CAPSULE EXTENDED RELEASE PO SCH (06:32)
[2020-08-27 07:46] LABS: BASOPHILS % 0.3 % (0.0-2.0); EOSINOPHILS % 2.8 % (0.0-5.0); HEMATOCRIT. 32.8 % (36.0-48.0); HEMOGLOBIN. 10.8 g/dL (12.0-16.0); LYMPHOCYTES % 35.2 % (20.0-50.0); MEAN CORPUSCULAR HEMOGLOBIN 30.1 pg (28.0-32.0); MEAN CORPUSCULAR VOLUME 91.4 fL (81.0-99.0); MEAN PLATELET VOLUME 7.6 fl (7.4-10.4); MONOCYTES % 10.3 % (2.0-8.0); NEUTROPHILS % 51.4 % (40.0-76.0); PLATELET 246 x1000/uL (130-400); RED BLOOD CELL COUNT 3.59 mill/uL (4.2-5.4); RED CELL DISTRIBUTION WIDTH 14.3 % (11.6-14.6)
[2020-08-27 07:53] VITALS: BP 153/61
[2020-08-27 07:56] LABS: CHLORIDE 105 mEq/L (98-107)
[2020-08-27 08:07] LABS: PHOSPHORUS 3.2 mg/dL (2.5-4.9)
[2020-08-27 08:08] LABS: LDL CHOLESTEROL 66 mg/dL (5-100)
[2020-08-27 08:09] LABS: HDL CHOLESTEROL 60 mg/dL (40-59); T4 FREE 1.02 ng/dL (0.76-1.46)
[2020-08-27] MEDS: BLOOD SUGAR DIAGNOSTIC STRIP TEST SCH ×2 (08:37→18:14)
[2020-08-27] MEDS: GABAPENTIN 100MG CAPSULE PO SCH (08:59)
[2020-08-27] MEDS: LOSARTAN POTASSIUM 25 MG TABLET PO SCH (08:59)
[2020-08-27] MEDS: LABETALOL HCL 200MG TABLET PO SCH ×2 (08:59→21:33)
[2020-08-27] MEDS ORDERED: ASPIRIN 81MG EC TABLET PO SCH (09:00)
[2020-08-27] MEDS: NIFEDIPINE XL 60MG TAB PO SCH (09:02)
[2020-08-27 11:17] VITALS: BP 143/56
[2020-08-27] MEDS: GLIMEPIRIDE 1MG TABLET PO SCH (11:48)
[2020-08-27 15:48] VITALS: BP 122/59
[2020-08-27 20:00] VITALS: BP 122/52
[2020-08-27] MEDS: LORAZEPAM 0.5MG TABLET PO PRN (21:57)
[2020-08-28] VITALS: BP 112/64
[2020-08-28] MEDS: ACETAMINOPHEN 325MG TABLET PO PRN ×4 (00:29→18:11)
[2020-08-28 04:00] VITALS: BP 97/52
[2020-08-28] MEDS: OMEPRAZOLE 20MG CAPSULE EXTENDED RELEASE PO SCH (06:30)
[2020-08-28] MEDS: INSULIN LISPRO 100 UNITS/ML SUBCUT SCH ×4 (06:54→21:45)
[2020-08-28] MEDS: BLOOD SUGAR DIAGNOSTIC STRIP TEST SCH ×6 (06:54→20:37)
[2020-08-28 07:26] LABS: BASOPHILS % 0.4 % (0.0-2.0); HEMATOCRIT. 29.5 % (36.0-48.0); LYMPHOCYTES % 40.6 % (20.0-50.0); MEAN CORPUSCULAR HEMOGLOBIN 30.7 pg (28.0-32.0); MEAN CORPUSCULAR VOLUME 91.1 fL (81.0-99.0); MEAN PLATELET VOLUME 7.9 fl (7.4-10.4); MONOCYTES % 14.3 % (2.0-8.0); NEUTROPHILS % 42.7 % (40.0-76.0); PLATELET 206 x1000/uL (130-400); RED BLOOD CELL COUNT 3.24 mill/uL (4.2-5.4); RED CELL DISTRIBUTION WIDTH 14.1 % (11.6-14.6)
[2020-08-28 07:45] LABS: CHLORIDE 105 mEq/L (98-107)
[2020-08-28 08:00] VITALS: BP 136/50
[2020-08-28] MEDS ORDERED: POTASSIUM CHLORIDE 20MEQ TABLET SR PO SCH (09:00)
[2020-08-28] MEDS: GLIMEPIRIDE 1MG TABLET PO SCH (10:22)
[2020-08-28] MEDS: ENOXAPARIN 40MG/0.4ML SYR SUBCUT SCH (10:22)
[2020-08-28] MEDS: GABAPENTIN 100MG CAPSULE PO SCH (10:23)
[2020-08-28] MEDS: LOSARTAN POTASSIUM 25 MG TABLET PO SCH (10:23)
[2020-08-28] MEDS: LABETALOL HCL 200MG TABLET PO SCH ×2 (10:23→21:38)
[2020-08-28] MEDS: NIFEDIPINE XL 60MG TAB PO SCH (10:23)
[2020-08-28 12:00] VITALS: BP 105/60
[2020-08-28 16:00] VITALS: BP 110/47
[2020-08-28] MEDS: MAGNESIUM HYDROXIDE 400MG/5ML 30ML UDC PO PRN (17:28)
[2020-08-28 20:00] VITALS: BP 129/58
[2020-08-28] MEDS: LORAZEPAM 0.5MG TABLET PO PRN (21:42)
[2020-08-29] VITALS: BP 126/52
[2020-08-29] MEDS: ACETAMINOPHEN 325MG TABLET PO PRN ×2 (02:02→08:10)
[2020-08-29 04:00] VITALS: BP 111/56
[2020-08-29 07:16] LABS: BASOPHILS % 0.4 % (0.0-2.0); EOSINOPHILS % 2.7 % (0.0-5.0); HEMATOCRIT. 27.5 % (36.0-48.0); HEMOGLOBIN. 9.3 g/dL (12.0-16.0); LYMPHOCYTES % 35.3 % (20.0-50.0); MEAN CORPUSCULAR HEMOGLOBIN 30.8 pg (28.0-32.0); MEAN PLATELET VOLUME 7.5 fl (7.4-10.4); MONOCYTES % 13.4 % (2.0-8.0); NEUTROPHILS % 48.2 % (40.0-76.0); PLATELET 206 x1000/uL (130-400); RED BLOOD CELL COUNT 3.02 mill/uL (4.2-5.4); RED CELL DISTRIBUTION WIDTH 14.3 % (11.6-14.6)
[2020-08-29] MEDS: INSULIN LISPRO 100 UNITS/ML SUBCUT SCH ×4 (07:19→20:56)
[2020-08-29] MEDS: BLOOD SUGAR DIAGNOSTIC STRIP TEST SCH ×6 (07:19→20:52)
[2020-08-29 07:28] LABS: CHLORIDE 106 mEq/L (98-107)
[2020-08-29] MEDS: ENOXAPARIN 40MG/0.4ML SYR SUBCUT SCH (08:09)
[2020-08-29] MEDS: LOSARTAN POTASSIUM 25 MG TABLET PO SCH (08:09)
[2020-08-29] MEDS: LABETALOL HCL 200MG TABLET PO SCH ×2 (08:09→20:52)
[2020-08-29] MEDS: GABAPENTIN 100MG CAPSULE PO SCH (08:09)
[2020-08-29] MEDS: NIFEDIPINE XL 60MG TAB PO SCH (08:10)
[2020-08-29] MEDS: OMEPRAZOLE 20MG CAPSULE EXTENDED RELEASE PO SCH (08:10)
[2020-08-29] MEDS: GLIMEPIRIDE 1MG TABLET PO SCH (08:10)
[2020-08-29 12:00] VITALS: BP 131/53
[2020-08-29] MEDS: CEPHALEXIN 250MG CAPSULE PO SCH ×2 (15:49→17:46)
[2020-08-29 16:00] VITALS: BP 119/50
[2020-08-29 20:00] VITALS: BP 118/52
[2020-08-29 20:41] LABS: CLARITY URINE CLEAR (CLEAR); COLOR URINE YELLOW (YELLOW); KETONES URINE NEGATIVE (NEGATIVE); LEUKOCYTE ESTERASE URINE TRACE (NEGATIVE); NITRITE URINE NEGATIVE (NEGATIVE); OCCULT BLOOD URINE NEGATIVE (NEGATIVE); PH URINE 7.5 (4.5-8.0); PROTEIN URINE NEGATIVE (NEGATIVE); SPECIFIC GRAVITY URINE 1.009 (1.005-1.030); UROBILINOGEN URINE 0.2 E.U./dL (0.2-1.0)
[2020-08-29] MEDS: MAGNESIUM HYDROXIDE 400MG/5ML 30ML UDC PO PRN (20:52)
[2020-08-30] VITALS: BP 130/49
[2020-08-30] MEDS: ACETAMINOPHEN 325MG TABLET PO PRN ×4 (00:37→22:39)
[2020-08-30] MEDS: LORAZEPAM 0.5MG TABLET PO PRN (03:13)
[2020-08-30 04:00] VITALS: BP 129/55
[2020-08-30] MEDS: BLOOD SUGAR DIAGNOSTIC STRIP TEST SCH ×6 (06:37→21:00)
[2020-08-30] MEDS: OMEPRAZOLE 20MG CAPSULE EXTENDED RELEASE PO SCH (06:42)
[2020-08-30] MEDS: INSULIN LISPRO 100 UNITS/ML SUBCUT SCH ×4 (06:55→22:20)
[2020-08-30 08:05] VITALS: BP 125/55
[2020-08-30] MEDS: GLIMEPIRIDE 1MG TABLET PO SCH (08:15)
[2020-08-30] MEDS: ENOXAPARIN 40MG/0.4ML SYR SUBCUT SCH (08:16)
[2020-08-30] MEDS: LABETALOL HCL 200MG TABLET PO SCH ×2 (08:16→22:21)
[2020-08-30] MEDS: GABAPENTIN 100MG CAPSULE PO SCH (08:16)
[2020-08-30] MEDS: CEPHALEXIN 250MG CAPSULE PO SCH ×3 (08:16→17:46)
[2020-08-30] MEDS: LOSARTAN POTASSIUM 25 MG TABLET PO SCH (08:16)
[2020-08-30] MEDS: NIFEDIPINE XL 60MG TAB PO SCH (08:18)
[2020-08-30 12:22] VITALS: BP 128/55
[2020-08-30 15:59] VITALS: BP 119/46
[2020-08-30 20:00] VITALS: BP 132/67
[2020-08-31 00:39] VITALS: BP 117/59
[2020-08-31 04:00] VITALS: BP 138/64
[2020-08-31] MEDS: ACETAMINOPHEN 325MG TABLET PO PRN ×3 (04:50→20:52)
[2020-08-31] MEDS: OMEPRAZOLE 20MG CAPSULE EXTENDED RELEASE PO SCH (06:28)
[2020-08-31] MEDS: BLOOD SUGAR DIAGNOSTIC STRIP TEST SCH ×6 (06:28→20:56)
[2020-08-31 08:02] VITALS: BP 141/62
[2020-08-31] MEDS: GABAPENTIN 100MG CAPSULE PO SCH (09:57)
[2020-08-31] MEDS: GLIMEPIRIDE 1MG TABLET PO SCH (09:57)
[2020-08-31] MEDS: CEPHALEXIN 250MG CAPSULE PO SCH ×3 (09:57→17:58)
[2020-08-31] MEDS: LOSARTAN POTASSIUM 25 MG TABLET PO SCH (09:57)
[2020-08-31] MEDS: LABETALOL HCL 200MG TABLET PO SCH ×2 (09:58→20:51)
[2020-08-31] MEDS: NIFEDIPINE XL 60MG TAB PO SCH (09:58)
[2020-08-31] MEDS: ENOXAPARIN 40MG/0.4ML SYR SUBCUT SCH (09:59)
[2020-08-31] MEDS: INSULIN LISPRO 100 UNITS/ML SUBCUT SCH ×4 (10:05→20:57)
[2020-08-31 11:36] VITALS: BP 148/68
[2020-08-31 15:53] VITALS: BP 114/54
[2020-08-31] MEDS: MAGNESIUM HYDROXIDE 400MG/5ML 30ML UDC PO PRN (17:58)
[2020-08-31 20:00] VITALS: BP 129/63
[2020-08-31] MEDS: FAMOTIDINE 20MG TABLET PO SCH (20:51)
[2020-09-01] VITALS: BP 104/50
[2020-09-01 04:00] VITALS: BP 121/67
[2020-09-01] MEDS: FAMOTIDINE 20MG TABLET PO SCH (05:55)
[2020-09-01] MEDS: BLOOD SUGAR DIAGNOSTIC STRIP TEST SCH ×4 (05:55→17:34)
[2020-09-01] MEDS: ACETAMINOPHEN 325MG TABLET PO PRN ×2 (05:55→12:41)
[2020-09-01 08:00] VITALS: BP 132/69
[2020-09-01] MEDS: GLIMEPIRIDE 1MG TABLET PO SCH (08:27)
[2020-09-01] MEDS: GABAPENTIN 100MG CAPSULE PO SCH (08:27)
[2020-09-01] MEDS: LABETALOL HCL 200MG TABLET PO SCH (08:27)
[2020-09-01] MEDS: LOSARTAN POTASSIUM 25 MG TABLET PO SCH (08:27)
[2020-09-01] MEDS: CEPHALEXIN 250MG CAPSULE PO SCH ×3 (08:27→17:34)
[2020-09-01] MEDS: NIFEDIPINE XL 60MG TAB PO SCH (08:28)
[2020-09-01] MEDS: ENOXAPARIN 40MG/0.4ML SYR SUBCUT SCH (08:28)
[2020-09-01] MEDS: INSULIN LISPRO 100 UNITS/ML SUBCUT SCH ×3 (08:30→17:44)
[2020-09-01 12:00] VITALS: BP 154/58
[2020-09-01] MEDS ORDERED: CEPH250C2 PO (12:19)
[2020-09-01 14:57] VITALS: BP 140/67
[2020-09-01 16:00] VITALS: BP 134/61
== END 2020-09-01 18:41 | disposition home health service (06) | DRG 563 ==
LOC: ER 13:15 → 6WST 19:24 → ENRESERV 22:28
PROVIDERS: ADMIT Family Medicine Adult Medicine; ATTEND Family Medicine Adult Medicine
PROC: 2W3RX1Z Immobilization of Left Lower Leg using Splint (ICD-10-PCS; principal; 2020-08-26)
DX: S82.842A Displaced bimalleolar fracture of left lower leg, initial encounter for closed fracture (principal); J44.9 Chronic obstructive pulmonary disease, unspecified; I10 Essential (primary) hypertension; E11.9 Type 2 diabetes mellitus without complications; D64.9 Anemia, unspecified; E78.5 Hyperlipidemia, unspecified; M19.90 Unspecified osteoarthritis, unspecified site; K21.9 Gastro-esophageal reflux disease without esophagitis; W18.39XA Other fall on same level, initial encounter; Z82.5 Family history of asthma and other chronic lower respiratory diseases; Z88.5 Allergy status to narcotic agent; Z88.0 Allergy status to penicillin; Z88.8 Allergy status to other drugs, medicaments and biological substances; Z79.84 Long term (current) use of oral hypoglycemic drugs; Z79.899 Other long term (current) drug therapy; Z86.718 Personal history of other venous thrombosis and embolism; Z87.891 Personal history of nicotine dependence; Z82.49 Family history of ischemic heart disease and other diseases of the circulatory system; Y93.89 Activity, other specified; Y92.89 Other specified places as the place of occurrence of the external cause; Y99.8 Other external cause status
CPT/HCPCS: 36415; 71045; 73590; 73610; 80048; 80053; 80061; 80076; 81003; 82962; 83036; 83735; 83880; 84100; 84439; 84443; 84484; 85025; 93005; 93306; 94640; 97162; 99285; J1650; J1815

== ENCOUNTER 2020-09-19 11:17 | Emergency (ER) | payer OTHER, MEDICAID ==
[~2020-09-19] VITALS: Ht 165.1 cm; Wt 62.0 kg
[~2020-09-19 11:17] MED LIST changes: +CEPH250C2 PO
[2020-09-19] MEDS ORDERED: IBUPROFEN 600MG TABLET PO ONE (12:15)
[2020-09-19 12:20] LABS: CHLORIDE 104 mEq/L (98-107)
[2020-09-19] MEDS ORDERED: NITR-87 MT (12:51)
[2020-09-19 15:34] VITALS: BP 152/75
== END 2020-09-19 15:42 | disposition home or self-care (01) ==
LOC: ER 11:17
DX: M79.675 Pain in left toe(s) (principal); R30.0 Dysuria; E11.9 Type 2 diabetes mellitus without complications; I10 Essential (primary) hypertension; J45.909 Unspecified asthma, uncomplicated; Z88.0 Allergy status to penicillin; Z88.8 Allergy status to other drugs, medicaments and biological substances; Z79.899 Other long term (current) drug therapy; Z87.81 Personal history of (healed) traumatic fracture; Z79.82 Long term (current) use of aspirin
CPT/HCPCS: 36415; 80048; 99283

== ENCOUNTER 2020-09-25 03:04 | Inpatient (IN) | payer OTHER, MEDICAID ==
[~2020-09-25] VITALS: Ht 170.2 cm; Wt 69.9 kg
[~2020-09-25 03:04] MED LIST changes: +NITR-87 MT
[2020-09-25] MEDS ORDERED: SODIUM CHLORIDE 0.9% 1,000 ML IV ONE (03:30)
[2020-09-25 03:37] LABS: EOSINOPHILS % 9.2 % (0.0-5.0); HEMATOCRIT. 35.5 % (36.0-48.0); HEMOGLOBIN. 11.6 g/dL (12.0-16.0); LYMPHOCYTES % 34.6 % (20.0-50.0); MEAN CORPUSCULAR HEMOGLOBIN 29.5 pg (28.0-32.0); MEAN CORPUSCULAR VOLUME 90.1 fL (81.0-99.0); MEAN PLATELET VOLUME 6.9 fl (7.4-10.4); MONOCYTES % 9.5 % (2.0-8.0); NEUTROPHILS % 45.7 % (40.0-76.0); PLATELET 298 x1000/uL (130-400); RED BLOOD CELL COUNT 3.93 mill/uL (4.2-5.4); RED CELL DISTRIBUTION WIDTH 14.9 % (11.6-14.6)
[2020-09-25 03:44] LABS: CHLORIDE 103 mEq/L (98-107)
[2020-09-25] MEDS ORDERED: ACETAMINOPHEN 325MG TABLET PO ONE (04:00)
[2020-09-25 10:00] VITALS: BP 130/67
[2020-09-25 12:00] VITALS: BP 130/67
[2020-09-25] MEDS: NITROFURANTOIN 100MG M/M CAPSULE PO SCH ×2 (12:26→21:07)
[2020-09-25] MEDS: LOSARTAN POTASSIUM 50 MG TABLET PO SCH (12:26)
[2020-09-25] MEDS: NIFEDIPINE XL 60MG TAB PO SCH (12:26)
[2020-09-25] MEDS ORDERED: CLONIDINE HCL 0.2MG/24HR PATCH TOP SCH (12:30)
[2020-09-25] MEDS ORDERED: DEXTROSE 50% WATER 50ML SYRINGE IV PRN (16:45)
[2020-09-25] MEDS: SODIUM CHLORIDE 0.9% 1,000 ML IV SCH (17:13)
[2020-09-25] MEDS: LABETALOL HCL 200MG TABLET PO SCH (17:13)
[2020-09-25] MEDS: INSULIN LISPRO 100 UNITS/ML SUBCUT SCH ×2 (17:19→21:07)
[2020-09-25] MEDS: BLOOD SUGAR DIAGNOSTIC STRIP TEST SCH ×2 (17:19→20:56)
[2020-09-25 20:28] VITALS: BP 125/61
[2020-09-26] VITALS: BP 126/59
[2020-09-26] MEDS: ACETAMINOPHEN 325MG TABLET PO PRN (02:25)
[2020-09-26 04:00] VITALS: BP 151/64
[2020-09-26] MEDS: BLOOD SUGAR DIAGNOSTIC STRIP TEST SCH ×4 (06:22→21:00)
[2020-09-26] MEDS: SODIUM CHLORIDE 0.9% 1,000 ML IV SCH ×2 (06:22→13:05)
[2020-09-26] MEDS: INSULIN LISPRO 100 UNITS/ML SUBCUT SCH ×4 (07:50→21:49)
[2020-09-26 08:00] VITALS: BP 154/69
[2020-09-26] MEDS ORDERED: POTASSIUM CHLORIDE 8 MEQ PO SCH (09:00)
[2020-09-26] MEDS: GABAPENTIN 100MG CAPSULE PO SCH (09:27)
[2020-09-26] MEDS: POTASSIUM CHLORIDE 8 MEQ TABLET.SA PO SCH (09:27)
[2020-09-26] MEDS: ASPIRIN 81MG EC TABLET PO SCH (09:28)
[2020-09-26] MEDS: NIFEDIPINE XL 60MG TAB PO SCH (09:28)
[2020-09-26] MEDS: LOSARTAN POTASSIUM 50 MG TABLET PO SCH (09:28)
[2020-09-26] MEDS: LABETALOL HCL 200MG TABLET PO SCH ×2 (09:28→19:31)
[2020-09-26] MEDS: GLIMEPIRIDE 1MG TABLET PO SCH (09:28)
[2020-09-26] MEDS: NITROFURANTOIN 100MG M/M CAPSULE PO SCH ×2 (09:28→20:59)
[2020-09-26 12:00] VITALS: BP 122/61
[2020-09-26 16:00] VITALS: BP 148/67
[2020-09-26 19:34] LABS: BASOPHILS % 0.6 % (0.0-2.0); HEMATOCRIT. 32.4 % (36.0-48.0); HEMOGLOBIN. 10.6 g/dL (12.0-16.0); LYMPHOCYTES % 40.8 % (20.0-50.0); MEAN CORPUSCULAR HEMOGLOBIN 29.5 pg (28.0-32.0); MEAN CORPUSCULAR VOLUME 89.9 fL (81.0-99.0); MONOCYTES % 12.1 % (2.0-8.0); NEUTROPHILS % 36.5 % (40.0-76.0); PLATELET 281 x1000/uL (130-400); RED CELL DISTRIBUTION WIDTH 14.6 % (11.6-14.6)
[2020-09-26 19:52] LABS: CHLORIDE 104 mEq/L (98-107)
[2020-09-26 20:00] VITALS: BP 141/43
[2020-09-27] VITALS (7 sets, daily range): BP systolic 112–164; BP diastolic 51–74
[2020-09-27] MEDS: SODIUM CHLORIDE 0.9% 1,000 ML IV SCH ×2 (02:00→12:00)
[2020-09-27] MEDS: ONDANSETRON HCL 4MG/2ML INJ IV PRN (02:07)
[2020-09-27] MEDS: ACETAMINOPHEN 325MG TABLET PO PRN ×2 (02:59→18:47)
[2020-09-27] MEDS: BLOOD SUGAR DIAGNOSTIC STRIP TEST SCH ×4 (07:20→21:17)
[2020-09-27] MEDS: INSULIN LISPRO 100 UNITS/ML SUBCUT SCH ×4 (07:50→21:00)
[2020-09-27] MEDS: NITROFURANTOIN 100MG M/M CAPSULE PO SCH ×2 (09:31→21:17)
[2020-09-27] MEDS: GLIMEPIRIDE 1MG TABLET PO SCH (09:31)
[2020-09-27] MEDS: LABETALOL HCL 200MG TABLET PO SCH ×2 (09:32→16:39)
[2020-09-27] MEDS: ASPIRIN 81MG EC TABLET PO SCH (09:32)
[2020-09-27] MEDS: GABAPENTIN 100MG CAPSULE PO SCH (09:33)
[2020-09-27] MEDS: LOSARTAN POTASSIUM 50 MG TABLET PO SCH (09:33)
[2020-09-27] MEDS: NIFEDIPINE XL 60MG TAB PO SCH (09:33)
[2020-09-27] MEDS: CLONIDINE 0.1MG TABLET PO PRN (09:34)
[2020-09-27] MEDS: POTASSIUM CHLORIDE 8 MEQ TABLET.SA PO SCH (09:34)
[2020-09-27 17:36] LABS: CLARITY URINE CLEAR (CLEAR); COLOR URINE YELLOW (YELLOW); KETONES URINE NEGATIVE (NEGATIVE); LEUKOCYTE ESTERASE URINE NEGATIVE (NEGATIVE); NITRITE URINE NEGATIVE (NEGATIVE); OCCULT BLOOD URINE NEGATIVE (NEGATIVE); PH URINE 6.5 (4.5-8.0); PROTEIN URINE NEGATIVE (NEGATIVE); SPECIFIC GRAVITY URINE 1.016 (1.005-1.030); UROBILINOGEN URINE 0.2 E.U./dL (0.2-1.0)
[2020-09-28] VITALS: BP 121/51
[2020-09-28] MEDS: ACETAMINOPHEN 325MG TABLET PO PRN ×2 (02:56→09:23)
[2020-09-28 04:00] VITALS: BP 177/76
[2020-09-28] MEDS: CLONIDINE 0.1MG TABLET PO PRN (04:27)
[2020-09-28] MEDS: SODIUM CHLORIDE 0.9% 1,000 ML IV SCH ×2 (04:40→17:58)
[2020-09-28] MEDS: BLOOD SUGAR DIAGNOSTIC STRIP TEST SCH ×2 (06:51→12:18)
[2020-09-28] MEDS: INSULIN LISPRO 100 UNITS/ML SUBCUT SCH ×2 (06:51→12:18)
[2020-09-28 08:00] VITALS: BP 160/71
[2020-09-28] MEDS: ASPIRIN 81MG EC TABLET PO SCH (09:21)
[2020-09-28] MEDS: GABAPENTIN 100MG CAPSULE PO SCH (09:21)
[2020-09-28] MEDS: LOSARTAN POTASSIUM 50 MG TABLET PO SCH (09:21)
[2020-09-28] MEDS: POTASSIUM CHLORIDE 8 MEQ TABLET.SA PO SCH (09:22)
[2020-09-28] MEDS: LABETALOL HCL 200MG TABLET PO SCH ×2 (09:22→17:56)
[2020-09-28] MEDS: GLIMEPIRIDE 1MG TABLET PO SCH (09:22)
[2020-09-28] MEDS: NIFEDIPINE XL 60MG TAB PO SCH (09:22)
[2020-09-28] MEDS: NITROFURANTOIN 100MG M/M CAPSULE PO SCH (09:23)
[2020-09-28 12:00] VITALS: BP 114/57
[2020-09-28 16:00] VITALS: BP 118/55
[2020-09-28 20:00] VITALS: BP 106/48
[2020-09-28] MEDS: ONDANSETRON HCL 4MG/2ML INJ IV PRN (21:36)
[2020-09-29] VITALS: BP 144/62
[2020-09-29] MEDS: ACETAMINOPHEN 325MG TABLET PO PRN ×3 (00:38→17:21)
[2020-09-29 04:00] VITALS: BP 131/61
[2020-09-29] MEDS: INSULIN LISPRO 100 UNITS/ML SUBCUT SCH ×2 (06:29→12:50)
[2020-09-29] MEDS: BLOOD SUGAR DIAGNOSTIC STRIP TEST SCH ×3 (06:29→17:20)
[2020-09-29] MEDS: SODIUM CHLORIDE 0.9% 1,000 ML IV SCH (06:30)
[2020-09-29] MEDS ORDERED: DEXTROSE 50% WATER 50ML SYRINGE IV PRN (06:30)
[2020-09-29 08:00] VITALS: BP 166/75
[2020-09-29] MEDS ORDERED: LOSARTAN POTASSIUM 100 MG TABLET PO SCH (09:00)
[2020-09-29] MEDS: LABETALOL HCL 200MG TABLET PO SCH ×2 (09:38→17:00)
[2020-09-29] MEDS: GABAPENTIN 100MG CAPSULE PO SCH (09:38)
[2020-09-29] MEDS: NIFEDIPINE XL 60MG TAB PO SCH (09:39)
[2020-09-29] MEDS: POTASSIUM CHLORIDE 8 MEQ TABLET.SA PO SCH (09:39)
[2020-09-29] MEDS: GLIMEPIRIDE 1MG TABLET PO SCH (09:39)
[2020-09-29] MEDS: ASPIRIN 81MG EC TABLET PO SCH (09:39)
[2020-09-29 12:00] VITALS: BP 130/64
[2020-09-29 15:18] VITALS: BP 130/64
[2020-09-29 16:00] VITALS: BP 127/56
[2020-09-30 08:00] VITALS: BP 173/84
== END 2020-09-29 17:20 | disposition home health service (06) | DRG 392 ==
LOC: ER 03:07 → 6EST 07:45 → ENRESERV 08:30
PROVIDERS: ADMIT Internal Medicine; ATTEND Internal Medicine
DX: K52.9 Noninfective gastroenteritis and colitis, unspecified (principal); E87.1 Hypo-osmolality and hyponatremia; D72.819 Decreased white blood cell count, unspecified; I16.0 Hypertensive urgency; J44.9 Chronic obstructive pulmonary disease, unspecified; I10 Essential (primary) hypertension; E11.9 Type 2 diabetes mellitus without complications; E86.0 Dehydration; Z88.6 Allergy status to analgesic agent; Z88.1 Allergy status to other antibiotic agents; Z88.5 Allergy status to narcotic agent; Z88.0 Allergy status to penicillin
CPT/HCPCS: 36415; 80048; 80053; 81003; 82962; 83036; 85025; 87015; 87045; 87427; 87449; 87493; 93005; 97162; 99285; J1815; J2405; J7030

== ENCOUNTER 2021-07-18 09:26 | Emergency (ER) | payer OTHER, MEDICAID ==
[~2021-07-18] VITALS: Ht 167.6 cm; Wt 73.0 kg
[2021-07-18] MEDS ORDERED: SODIUM CHLORIDE 0.9% 500 ML IV ONE (10:00)
[2021-07-18 10:29] LABS: BASOPHILS % 0.6 % (0.0-2.0); EOSINOPHILS % 1.8 % (0.0-5.0); HEMATOCRIT. 29.3 % (36.0-48.0); HEMOGLOBIN. 9.1 g/dL (12.0-16.0); LYMPHOCYTES % 30.2 % (20.0-50.0); MEAN CORPUSCULAR HEMOGLOBIN 23.5 pg (28.0-32.0); MEAN CORPUSCULAR VOLUME 75.8 fL (81.0-99.0); MEAN PLATELET VOLUME 7.4 fl (7.4-10.4); MONOCYTES % 9.8 % (2.0-8.0); NEUTROPHILS % 57.6 % (40.0-76.0); PLATELET 316 x1000/uL (130-400); RED BLOOD CELL COUNT 3.86 mill/uL (4.2-5.4); RED CELL DISTRIBUTION WIDTH 22.9 % (11.6-14.6)
[2021-07-18 10:32] LABS: CLARITY URINE CLEAR (CLEAR); COLOR URINE YELLOW (YELLOW); KETONES URINE NEGATIVE (NEGATIVE); LEUKOCYTE ESTERASE URINE 3+ (NEGATIVE); NITRITE URINE POSITIVE (NEGATIVE); OCCULT BLOOD URINE TRACE (NEGATIVE); PH URINE 7.5 (4.5-8.0); PROTEIN URINE NEGATIVE (NEGATIVE); SPECIFIC GRAVITY URINE 1.008 (1.005-1.030); UROBILINOGEN URINE 0.2 E.U./dL (0.2-1.0)
[2021-07-18 10:36] LABS: CHLORIDE 109 mEq/L (98-107)
[2021-07-18] MEDS ORDERED: CEFTRIAXONE 1 G PREMIX 50 ML IV NR (11:00)
[2021-07-18] MEDS ORDERED: CEPH500T MT (11:15)
[2021-07-18 11:33] LABS: PLATELET ESTIMATE NORMAL
[2021-07-18] MEDS ORDERED: ACETAMINOPHEN 325MG TABLET PO ONE (12:00)
[2021-07-18 12:46] VITALS: BP 148/62
== END 2021-07-18 12:59 | disposition home or self-care (01) ==
LOC: ER 10:00
DX: N39.0 Urinary tract infection, site not specified (principal); J44.9 Chronic obstructive pulmonary disease, unspecified; E11.9 Type 2 diabetes mellitus without complications; I10 Essential (primary) hypertension; Z88.5 Allergy status to narcotic agent; Z88.6 Allergy status to analgesic agent; Z88.0 Allergy status to penicillin
CPT/HCPCS: 36415; 80053; 81003; 84484; 85025; 87077; 87086; 87186; 93005; 96361; 96374; 99284; J0696; J7040

== ENCOUNTER 2021-07-29 05:38 | Inpatient (IN) | payer OTHER, MEDICAID ==
[~2021-07-29] VITALS: Ht 165.1 cm; Wt 76.9 kg
[~2021-07-29 05:38] MED LIST changes: +CEPH500T MT
[2021-07-29] MEDS ORDERED: SODIUM CHLORIDE 0.9% 1000ML BAG (SEPSIS BOLUS) IV ONE ×2 (06:15)
[2021-07-29 06:33] LABS: CLARITY URINE CLEAR (CLEAR); COLOR URINE YELLOW (YELLOW); KETONES URINE NEGATIVE (NEGATIVE); LEUKOCYTE ESTERASE URINE NEGATIVE (NEGATIVE); NITRITE URINE NEGATIVE (NEGATIVE); OCCULT BLOOD URINE NEGATIVE (NEGATIVE); PROTEIN URINE NEGATIVE (NEGATIVE); SPECIFIC GRAVITY URINE 1.009 (1.005-1.030); UROBILINOGEN URINE 0.2 E.U./dL (0.2-1.0)
[2021-07-29 06:41] LABS: EOSINOPHILS % 2.3 % (0.0-5.0); HEMATOCRIT. 27.9 % (36.0-48.0); HEMOGLOBIN. 8.8 g/dL (12.0-16.0); LYMPHOCYTES % 34.5 % (20.0-50.0); MEAN CORPUSCULAR HEMOGLOBIN 23.2 pg (28.0-32.0); MEAN CORPUSCULAR VOLUME 73.7 fL (81.0-99.0); MEAN PLATELET VOLUME 7.4 fl (7.4-10.4); MONOCYTES % 8.2 % (2.0-8.0); PLATELET 432 x1000/uL (130-400); RED BLOOD CELL COUNT 3.79 mill/uL (4.2-5.4); RED CELL DISTRIBUTION WIDTH 23.7 % (11.6-14.6)
[2021-07-29 06:57] LABS: CHLORIDE 109 mEq/L (98-107)
[2021-07-29 09:24] LABS: PLATELET ESTIMATE SLIGHTLY INCREASED
[2021-07-29] MEDS ORDERED: ACETAMINOPHEN 325MG TABLET PO ONE (12:00)
[2021-07-29] MEDS ORDERED: GUAIFENESIN 200MG/10ML SUGAR FREE UDC PO PRN (13:30)
[2021-07-29] MEDS ORDERED: NITROGLYCERIN 0.4MG TABLET SL SL PRN (13:30)
[2021-07-29] MEDS ORDERED: DEXTROSE 50% WATER 50ML SYRINGE IV PRN (13:30)
[2021-07-29] MEDS ORDERED: IPRATROPIUM/ALBUTEROL 0.5-3(2.5)MG/3ML NEB NEB PRN (13:30)
[2021-07-29] MEDS ORDERED: ZOLPIDEM TARTRATE 5MG TABLET PO PRN (13:30)
[2021-07-29] MEDS ORDERED: MAGNESIUM/ALUMINUM HYDROXIDE/SIMETHICONE 30ML UDC PO PRN (13:30)
[2021-07-29] MEDS ORDERED: ACETAMINOPHEN 325MG TABLET PO PRN (13:30)
[2021-07-29] MEDS ORDERED: ONDANSETRON HCL 4MG/2ML INJ IV PRN (13:30)
[2021-07-29] MEDS: ENOXAPARIN 40MG/0.4ML SYR SUBCUT SCH (14:27)
[2021-07-29] MEDS ORDERED: LEVOFLOXACIN 500MG PREMIX 100 ML IV NR (14:30)
[2021-07-29 15:14] LABS: T4 FREE 0.91 ng/dL (0.76-1.46)
[2021-07-29 15:16] LABS: CREATINE KINASE 65 IU/L (26-192)
[2021-07-29 15:17] LABS: CREATINE KINASE MB FRACTION < 1.0 ng/mL (0.5-3.6)
[2021-07-29 16:08] LABS: FOLIC ACID (FOLATE) SERUM > 20.00 ng/mL (>5.38)
[2021-07-29 16:09] LABS: VITAMIN B12 SERUM 443 pg/mL (211-911)
[2021-07-29] MEDS: INSULIN LISPRO 100 UNITS/ML SUBCUT SCH ×2 (19:48→21:00)
[2021-07-29] MEDS: BLOOD SUGAR DIAGNOSTIC STRIP TEST SCH ×2 (19:48→21:00)
[2021-07-29 21:30] VITALS: BP 159/66
[2021-07-29] MEDS: METOPROLOL TARTRATE 25MG TABLET PO SCH (22:03)
[2021-07-29] MEDS: ASCORBIC ACID 500 MG TABLET PO SCH (22:03)
[2021-07-29] MEDS: FAMOTIDINE 20MG TABLET PO SCH (22:04)
[2021-07-29] MEDS: ACETAMINOPHEN 325MG TABLET PO PRN (22:51)
[2021-07-30] VITALS: BP 157/52
[2021-07-30 00:45] LABS: BASOPHILS % 0.3 % (0.0-2.0); EOSINOPHILS % 3.3 % (0.0-5.0); HEMATOCRIT. 26.4 % (36.0-48.0); HEMOGLOBIN. 8.2 g/dL (12.0-16.0); LYMPHOCYTES % 34.3 % (20.0-50.0); MEAN CORPUSCULAR HEMOGLOBIN 23.1 pg (28.0-32.0); MEAN CORPUSCULAR VOLUME 74.5 fL (81.0-99.0); MEAN PLATELET VOLUME 6.9 fl (7.4-10.4); MONOCYTES % 12.3 % (2.0-8.0); NEUTROPHILS % 49.8 % (40.0-76.0); PLATELET 415 x1000/uL (130-400); RED BLOOD CELL COUNT 3.54 mill/uL (4.2-5.4); RED CELL DISTRIBUTION WIDTH 23.6 % (11.6-14.6)
[2021-07-30 00:58] LABS: CREATINE KINASE 57 IU/L (26-192)
[2021-07-30 00:59] LABS: CREATINE KINASE MB FRACTION < 1.0 ng/mL (0.5-3.6)
[2021-07-30] MEDS: ACETAMINOPHEN 325MG TABLET PO PRN ×3 (03:54→20:47)
[2021-07-30 04:00] VITALS: BP 155/63
[2021-07-30] MEDS: BLOOD SUGAR DIAGNOSTIC STRIP TEST SCH ×4 (06:22→20:48)
[2021-07-30] MEDS: INSULIN LISPRO 100 UNITS/ML SUBCUT SCH ×4 (06:24→20:46)
[2021-07-30 07:11] LABS: CHLORIDE 108 mEq/L (98-107)
[2021-07-30 07:24] LABS: PHOSPHORUS 3.1 mg/dL (2.5-4.9)
[2021-07-30 08:00] VITALS: BP 158/56
[2021-07-30] MEDS: ASCORBIC ACID 500 MG TABLET PO SCH ×2 (09:27→20:48)
[2021-07-30] MEDS: CHOLECALCIFEROL (D3) 1000 UNIT TABLET PO SCH (09:27)
[2021-07-30] MEDS: METOPROLOL TARTRATE 25MG TABLET PO SCH ×2 (09:27→20:47)
[2021-07-30] MEDS: FAMOTIDINE 20MG TABLET PO SCH ×2 (09:27→20:47)
[2021-07-30] MEDS: ZINC SULFATE 220 MG ( 50 ) CAPSULE PO SCH (09:27)
[2021-07-30 12:00] VITALS: BP 122/86
[2021-07-30] MEDS: LEVOFLOXACIN 250MG PREMIX 50ML IV SCH (13:19)
[2021-07-30] MEDS: ENOXAPARIN 40MG/0.4ML SYR SUBCUT SCH (13:21)
[2021-07-30 16:00] VITALS: BP 143/62
[2021-07-30 20:00] VITALS: BP 133/57
[2021-07-31] VITALS (7 sets, daily range): BP systolic 144–175; BP diastolic 60–102
[2021-07-31] MEDS: KETOROLAC 15MG/ML VIAL IV PRN (03:11)
[2021-07-31] MEDS: CLONIDINE 0.1MG TABLET PO PRN ×3 (03:15→19:25)
[2021-07-31] MEDS: INSULIN LISPRO 100 UNITS/ML SUBCUT SCH ×4 (07:24→20:25)
[2021-07-31] MEDS: BLOOD SUGAR DIAGNOSTIC STRIP TEST SCH ×4 (07:24→20:25)
[2021-07-31] MEDS: METOPROLOL TARTRATE 25MG TABLET PO SCH ×2 (08:54→20:21)
[2021-07-31] MEDS: ZINC SULFATE 220 MG ( 50 ) CAPSULE PO SCH (08:55)
[2021-07-31] MEDS: FAMOTIDINE 20MG TABLET PO SCH ×2 (08:55→20:21)
[2021-07-31] MEDS: DOCUSATE SODIUM 100MG CAPSULE PO PRN (08:55)
[2021-07-31] MEDS: CHOLECALCIFEROL (D3) 1000 UNIT TABLET PO SCH (08:55)
[2021-07-31] MEDS: ASCORBIC ACID 500 MG TABLET PO SCH ×2 (08:55→20:21)
[2021-07-31] MEDS: ENOXAPARIN 40MG/0.4ML SYR SUBCUT SCH (12:29)
[2021-07-31] MEDS: LEVOFLOXACIN 250MG PREMIX 50ML IV SCH (14:58)
[2021-08-01] VITALS: BP 142/61
[2021-08-01] MEDS: DOCUSATE SODIUM 100MG CAPSULE PO PRN (00:39)
[2021-08-01] MEDS: ACETAMINOPHEN 325MG TABLET PO PRN ×2 (00:39→06:17)
[2021-08-01 04:00] VITALS: BP 157/63
[2021-08-01] MEDS: INSULIN LISPRO 100 UNITS/ML SUBCUT SCH ×4 (06:15→21:07)
[2021-08-01] MEDS: BLOOD SUGAR DIAGNOSTIC STRIP TEST SCH ×4 (06:15→21:01)
[2021-08-01] MEDS: CLONIDINE 0.1MG TABLET PO PRN ×2 (06:17→15:55)
[2021-08-01 08:00] VITALS: BP 158/72
[2021-08-01] MEDS: ZINC SULFATE 220 MG ( 50 ) CAPSULE PO SCH (08:21)
[2021-08-01] MEDS: CHOLECALCIFEROL (D3) 1000 UNIT TABLET PO SCH (08:22)
[2021-08-01] MEDS: ASCORBIC ACID 500 MG TABLET PO SCH ×2 (08:22→21:01)
[2021-08-01] MEDS: METOPROLOL TARTRATE 25MG TABLET PO SCH ×2 (08:22→21:00)
[2021-08-01] MEDS: FAMOTIDINE 20MG TABLET PO SCH ×2 (08:22→21:00)
[2021-08-01] MEDS: KETOROLAC 15MG/ML VIAL IV PRN (09:51)
[2021-08-01 12:00] VITALS: BP 137/53
[2021-08-01] MEDS: ENOXAPARIN 40MG/0.4ML SYR SUBCUT SCH (13:00)
[2021-08-01] MEDS: LEVOFLOXACIN 250MG PREMIX 50ML IV SCH (13:00)
[2021-08-01 16:00] VITALS: BP 173/65
[2021-08-01 20:00] VITALS: BP 124/59
[2021-08-02] VITALS (8 sets, daily range): BP systolic 128–181; BP diastolic 55–73
[2021-08-02] MEDS: CLONIDINE 0.1MG TABLET PO PRN ×3 (00:13→18:23)
[2021-08-02] MEDS: ACETAMINOPHEN 325MG TABLET PO PRN ×3 (00:13→20:59)
[2021-08-02] MEDS: INSULIN LISPRO 100 UNITS/ML SUBCUT SCH ×4 (05:16→21:00)
[2021-08-02] MEDS: BLOOD SUGAR DIAGNOSTIC STRIP TEST SCH ×4 (05:16→20:57)
[2021-08-02] MEDS: CHOLECALCIFEROL (D3) 1000 UNIT TABLET PO SCH (08:19)
[2021-08-02] MEDS: ZINC SULFATE 220 MG ( 50 ) CAPSULE PO SCH (08:19)
[2021-08-02] MEDS: FAMOTIDINE 20MG TABLET PO SCH ×2 (08:19→20:56)
[2021-08-02] MEDS: ASCORBIC ACID 500 MG TABLET PO SCH ×2 (08:19→20:56)
[2021-08-02] MEDS: METOPROLOL TARTRATE 25MG TABLET PO SCH ×2 (08:19→20:56)
[2021-08-02] MEDS: LEVOFLOXACIN 250MG PREMIX 50ML IV SCH (14:01)
[2021-08-02] MEDS: ENOXAPARIN 40MG/0.4ML SYR SUBCUT SCH (14:02)
[2021-08-03] VITALS (8 sets, daily range): BP systolic 133–208; BP diastolic 51–90
[2021-08-03] MEDS: CLONIDINE 0.1MG TABLET PO PRN ×3 (00:23→12:30)
[2021-08-03] MEDS: ACETAMINOPHEN 325MG TABLET PO PRN (04:20)
[2021-08-03] MEDS: INSULIN LISPRO 100 UNITS/ML SUBCUT SCH ×3 (06:16→16:51)
[2021-08-03] MEDS: BLOOD SUGAR DIAGNOSTIC STRIP TEST SCH ×3 (06:16→16:49)
[2021-08-03 07:39] LABS: BASOPHILS % 0.4 % (0.0-2.0); EOSINOPHILS % 2.2 % (0.0-5.0); HEMATOCRIT. 28.3 % (36.0-48.0); HEMOGLOBIN. 8.6 g/dL (12.0-16.0); LYMPHOCYTES % 28.5 % (20.0-50.0); MEAN CORPUSCULAR HEMOGLOBIN 22.7 pg (28.0-32.0); MEAN PLATELET VOLUME 7.8 fl (7.4-10.4); MONOCYTES % 10.5 % (2.0-8.0); NEUTROPHILS % 58.4 % (40.0-76.0); PLATELET 366 x1000/uL (130-400); RED BLOOD CELL COUNT 3.77 mill/uL (4.2-5.4); RED CELL DISTRIBUTION WIDTH 23.4 % (11.6-14.6)
[2021-08-03 07:42] LABS: CHLORIDE 108 mEq/L (98-107)
[2021-08-03] MEDS: METOPROLOL TARTRATE 25MG TABLET PO SCH (09:00)
[2021-08-03] MEDS: ASCORBIC ACID 500 MG TABLET PO SCH (09:08)
[2021-08-03] MEDS: ZINC SULFATE 220 MG ( 50 ) CAPSULE PO SCH (09:08)
[2021-08-03] MEDS: CHOLECALCIFEROL (D3) 1000 UNIT TABLET PO SCH (09:08)
[2021-08-03] MEDS: FAMOTIDINE 20MG TABLET PO SCH (09:08)
[2021-08-03] MEDS: ENOXAPARIN 40MG/0.4ML SYR SUBCUT SCH (14:30)
== END 2021-08-03 17:25 | disposition home or self-care (01) | DRG 872 ==
LOC: ER 05:38 → 8WST 10:43 → SUPCPDRO 13:24 → EDBEDREQSVC 18:38 → ENRESERV 19:41 → EDBEDREQSVC 20:31 → EDBEDREQ 20:31 → EDBEDREQTM 20:31
PROVIDERS: ADMIT Internal Medicine; ATTEND Internal Medicine
DX: A41.9 Sepsis, unspecified organism (principal); N13.6 Pyonephrosis; D63.8 Anemia in other chronic diseases classified elsewhere; E11.9 Type 2 diabetes mellitus without complications; J44.9 Chronic obstructive pulmonary disease, unspecified; I10 Essential (primary) hypertension; K21.9 Gastro-esophageal reflux disease without esophagitis; Z88.0 Allergy status to penicillin; Z88.8 Allergy status to other drugs, medicaments and biological substances; Z79.899 Other long term (current) drug therapy; Z79.82 Long term (current) use of aspirin; Z79.4 Long term (current) use of insulin
CPT/HCPCS: 36415; 71045; 74176; 80048; 80053; 80061; 81003; 82550; 82553; 82607; 82746; 82962; 83036; 83540; 83550; 83605; 83735; 84100; 84145; 84439; 84443; 84484; 85025; 93005; 93306; 93970; 97162; 97166; 97535; 99285; G0378; J1650; J1815; J1885; J1956; J7030

== ENCOUNTER 2021-08-11 02:43 | Emergency (ER) | payer OTHER, MEDICAID ==
[~2021-08-11] VITALS: Ht 170.2 cm; Wt 73.0 kg
[2021-08-11 04:18] LABS: BASOPHILS % 0.5 % (0.0-2.0); EOSINOPHILS % 4.1 % (0.0-5.0); HEMATOCRIT. 27.4 % (36.0-48.0); HEMOGLOBIN. 8.5 g/dL (12.0-16.0); LYMPHOCYTES % 32.7 % (20.0-50.0); MEAN CORPUSCULAR HEMOGLOBIN 23.1 pg (28.0-32.0); MEAN CORPUSCULAR VOLUME 74.6 fL (81.0-99.0); MEAN PLATELET VOLUME 7.3 fl (7.4-10.4); MONOCYTES % 9.6 % (2.0-8.0); NEUTROPHILS % 53.1 % (40.0-76.0); PLATELET 288 x1000/uL (130-400); RED BLOOD CELL COUNT 3.67 mill/uL (4.2-5.4); RED CELL DISTRIBUTION WIDTH 23.7 % (11.6-14.6)
[2021-08-11 04:31] LABS: CHLORIDE 107 mEq/L (98-107)
[2021-08-11 05:11] LABS: CLARITY URINE CLEAR (CLEAR); COLOR URINE YELLOW (YELLOW); KETONES URINE NEGATIVE (NEGATIVE); LEUKOCYTE ESTERASE URINE TRACE (NEGATIVE); NITRITE URINE NEGATIVE (NEGATIVE); OCCULT BLOOD URINE NEGATIVE (NEGATIVE); PROTEIN URINE NEGATIVE (NEGATIVE); SPECIFIC GRAVITY URINE 1.007 (1.005-1.030); UROBILINOGEN URINE 0.2 E.U./dL (0.2-1.0)
[2021-08-11] MEDS ORDERED: NITROFURANTOIN 100MG M/M CAPSULE PO NR (07:00)
[2021-08-11 07:36] LABS: PLATELET ESTIMATE NORMAL
[2021-08-11] MEDS ORDERED: NITR-87 MT (07:48)
[2021-08-11] MEDS ORDERED: CLONIDINE 0.1MG TABLET PO ONE (10:30)
[2021-08-11] MEDS ORDERED: HYDRALAZINE HCL 50MG TABLET PO ONE (10:30)
[2021-08-11 11:11] VITALS: BP 168/68
== END 2021-08-11 07:20 | disposition home or self-care (01) ==
LOC: ER 02:43
DX: N39.0 Urinary tract infection, site not specified (principal); E11.9 Type 2 diabetes mellitus without complications; I10 Essential (primary) hypertension; J44.1 Chronic obstructive pulmonary disease with (acute) exacerbation; Z88.0 Allergy status to penicillin; Z88.5 Allergy status to narcotic agent; Z88.6 Allergy status to analgesic agent; Z88.8 Allergy status to other drugs, medicaments and biological substances; Z79.899 Other long term (current) drug therapy
CPT/HCPCS: 36415; 80053; 81003; 85025; 99284

== ENCOUNTER 2021-09-25 01:36 | Emergency (ER) | payer MEDICARE, MEDICAID ==
[~2021-09-25] VITALS: Ht 167.6 cm; Wt 69.0 kg
[2021-09-25] MEDS ORDERED: ACETAMINOPHEN 325MG TABLET PO ONE (02:30)
[2021-09-25 03:55] LABS: BASOPHILS % 0.7 % (0.0-2.0); EOSINOPHILS % 2.9 % (0.0-5.0); HEMATOCRIT. 28.3 % (36.0-48.0); HEMOGLOBIN. 8.8 g/dL (12.0-16.0); MEAN CORPUSCULAR HEMOGLOBIN 25.8 pg (28.0-32.0); MEAN CORPUSCULAR VOLUME 83.1 fL (81.0-99.0); MEAN PLATELET VOLUME 6.9 fl (7.4-10.4); MONOCYTES % 9.8 % (2.0-8.0); NEUTROPHILS % 56.6 % (40.0-76.0); PLATELET 377 x1000/uL (130-400); RED CELL DISTRIBUTION WIDTH 27.7 % (11.6-14.6)
[2021-09-25 04:04] LABS: CHLORIDE 107 mEq/L (98-107)
[2021-09-25] MEDS ORDERED: IBUPROFEN 400MG TABLET PO ONE (05:30)
[2021-09-25] MEDS ORDERED: IBUPROFEN 400MG TABLET PO NR (07:15)
[2021-09-25 11:35] VITALS: BP 167/68
== END 2021-09-25 13:54 | disposition home or self-care (01) ==
LOC: ER 01:36
DX: R51.9 Headache, unspecified (principal); R07.89 Other chest pain; J44.9 Chronic obstructive pulmonary disease, unspecified; E11.9 Type 2 diabetes mellitus without complications; I10 Essential (primary) hypertension; Z79.899 Other long term (current) drug therapy
CPT/HCPCS: 36415; 71045; 80053; 82962; 84484; 85025; 93005; 99285

== ENCOUNTER 2021-11-27 15:23 | Emergency (ER) | payer MEDICAID, MEDICARE ==
[~2021-11-27] VITALS: Ht 165.1 cm; Wt 68.0 kg
[2021-11-27 17:49] LABS: BASOPHILS % 0.5 % (0.0-2.0); EOSINOPHILS % 2.7 % (0.0-5.0); HEMATOCRIT. 26.6 % (36.0-48.0); HEMOGLOBIN. 8.6 g/dL (12.0-16.0); LYMPHOCYTES % 34.8 % (20.0-50.0); MEAN CORPUSCULAR HEMOGLOBIN 26.9 pg (28.0-32.0); MEAN CORPUSCULAR VOLUME 82.7 fL (81.0-99.0); MEAN PLATELET VOLUME 7.5 fl (7.4-10.4); MONOCYTES % 10.7 % (2.0-8.0); NEUTROPHILS % 51.3 % (40.0-76.0); PLATELET 328 x1000/uL (130-400); RED BLOOD CELL COUNT 3.22 mill/uL (4.2-5.4); RED CELL DISTRIBUTION WIDTH 17.3 % (11.6-14.6)
[2021-11-27 18:01] LABS: CHLORIDE 107 mEq/L (98-107)
[2021-11-27 18:02] LABS: CLARITY URINE CLEAR (CLEAR); COLOR URINE YELLOW (YELLOW); KETONES URINE NEGATIVE (NEGATIVE); LEUKOCYTE ESTERASE URINE 2+ (NEGATIVE); NITRITE URINE POSITIVE (NEGATIVE); OCCULT BLOOD URINE NEGATIVE (NEGATIVE); PROTEIN URINE NEGATIVE (NEGATIVE); SPECIFIC GRAVITY URINE 1.008 (1.005-1.030); UROBILINOGEN URINE 0.2 E.U./dL (0.2-1.0)
[2021-11-27] MEDS ORDERED: NITR-87 MT (18:37)
[2021-11-27] MEDS ORDERED: ONDA4TAB11 PO (18:38)
[2021-11-27 20:00] VITALS: BP 122/68
== END 2021-11-27 20:30 | disposition home or self-care (01) ==
LOC: ER 15:23
DX: N39.0 Urinary tract infection, site not specified (principal); J44.9 Chronic obstructive pulmonary disease, unspecified; E11.9 Type 2 diabetes mellitus without complications; I10 Essential (primary) hypertension; Z79.899 Other long term (current) drug therapy
CPT/HCPCS: 36415; 80053; 81003; 85025; 99283

== ENCOUNTER 2021-12-05 13:26 | Inpatient (IN) | payer MEDICARE, MEDICAID ==
[~2021-12-05] VITALS: Ht 170.2 cm; Wt 73.0 kg
[~2021-12-05 13:26] MED LIST changes: +ONDA4TAB11 PO
[2021-12-05 15:02] LABS: CLARITY URINE CLEAR (CLEAR); COLOR URINE YELLOW (YELLOW); KETONES URINE NEGATIVE (NEGATIVE); LEUKOCYTE ESTERASE URINE NEGATIVE (NEGATIVE); NITRITE URINE NEGATIVE (NEGATIVE); OCCULT BLOOD URINE NEGATIVE (NEGATIVE); PROTEIN URINE NEGATIVE (NEGATIVE); UROBILINOGEN URINE 0.2 E.U./dL (0.2-1.0)
[2021-12-05 15:18] LABS: BASOPHILS % 0.8 % (0.0-2.0); EOSINOPHILS % 2.8 % (0.0-5.0); HEMOGLOBIN. 8.4 g/dL (12.0-16.0); LYMPHOCYTES % 40.2 % (20.0-50.0); MEAN CORPUSCULAR HEMOGLOBIN 25.8 pg (28.0-32.0); MEAN CORPUSCULAR VOLUME 82.7 fL (81.0-99.0); MONOCYTES % 10.2 % (2.0-8.0); PLATELET 337 x1000/uL (130-400); RED BLOOD CELL COUNT 3.26 mill/uL (4.2-5.4); RED CELL DISTRIBUTION WIDTH 16.2 % (11.6-14.6)
[2021-12-05 15:35] LABS: CHLORIDE 107 mEq/L (98-107)
[2021-12-05] MEDS ORDERED: IPRATROPIUM/ALBUTEROL 0.5-3(2.5)MG/3ML NEB HHN PRN (20:00)
[2021-12-05] MEDS ORDERED: DIPHENHYDRAMINE 50MG/ML VIAL IV PRN (20:00)
[2021-12-05] MEDS ORDERED: ONDANSETRON HCL 4MG/2ML INJ IV PRN (20:00)
[2021-12-05] MEDS: CLONIDINE 0.1MG TABLET PO PRN ×2 (21:16→23:00)
[2021-12-05 22:00] VITALS: BP 179/86
[2021-12-05 22:31] VITALS: BP 179/86
[2021-12-05] MEDS: ACETAMINOPHEN 325MG TABLET PO PRN (22:59)
[2021-12-06] VITALS: BP 116/55
[2021-12-06] MEDS: ACETAMINOPHEN 325MG TABLET PO PRN ×3 (03:19→22:04)
[2021-12-06 04:00] VITALS: BP 155/71
[2021-12-06 07:42] VITALS: BP 164/64
[2021-12-06 09:59] LABS: BASOPHILS % 0.2 % (0.0-2.0); EOSINOPHILS % 4.1 % (0.0-5.0); HEMATOCRIT. 27.9 % (36.0-48.0); HEMOGLOBIN. 8.9 g/dL (12.0-16.0); LYMPHOCYTES % 50.4 % (20.0-50.0); MEAN CORPUSCULAR HEMOGLOBIN 26.6 pg (28.0-32.0); MEAN CORPUSCULAR VOLUME 83.4 fL (81.0-99.0); MEAN PLATELET VOLUME 7.6 fl (7.4-10.4); MONOCYTES % 11.9 % (2.0-8.0); NEUTROPHILS % 33.4 % (40.0-76.0); PLATELET 321 x1000/uL (130-400); RED BLOOD CELL COUNT 3.35 mill/uL (4.2-5.4); RED CELL DISTRIBUTION WIDTH 16.3 % (11.6-14.6)
[2021-12-06 10:41] LABS: CHLORIDE 106 mEq/L (98-107)
[2021-12-06] MEDS: CLONIDINE 0.1MG TABLET PO PRN (11:24)
[2021-12-06 12:00] VITALS: BP 191/83
[2021-12-06] MEDS: LOSARTAN POTASSIUM 25 MG TABLET PO SCH (12:40)
[2021-12-06] MEDS: GABAPENTIN 100MG CAPSULE PO SCH (12:40)
[2021-12-06] MEDS: ASPIRIN 81MG EC TABLET PO SCH (12:40)
[2021-12-06] MEDS: NIFEDIPINE XL 60MG TAB PO SCH (12:40)
[2021-12-06] MEDS ORDERED: DEXTROSE 50% WATER 50ML SYRINGE IV PRN (13:00)
[2021-12-06] MEDS: GLIMEPIRIDE 1MG TABLET PO SCH (14:08)
[2021-12-06 16:00] VITALS: BP 123/51
[2021-12-06] MEDS: BLOOD SUGAR DIAGNOSTIC STRIP TEST SCH ×2 (16:06→20:44)
[2021-12-06] MEDS: LABETALOL HCL 200MG TABLET PO SCH (16:53)
[2021-12-06] MEDS: INSULIN LISPRO 100 UNITS/ML SUBCUT SCH ×2 (16:54→20:44)
[2021-12-06 20:00] VITALS: BP 149/63
[2021-12-07] VITALS: BP 119/50
[2021-12-07] MEDS: ACETAMINOPHEN 325MG TABLET PO PRN ×2 (03:24→08:49)
[2021-12-07 04:00] VITALS: BP 134/57
[2021-12-07] MEDS: OMEPRAZOLE 20MG CAPSULE EXTENDED RELEASE PO SCH (06:10)
[2021-12-07] MEDS: BLOOD SUGAR DIAGNOSTIC STRIP TEST SCH ×4 (06:13→21:00)
[2021-12-07] MEDS: INSULIN LISPRO 100 UNITS/ML SUBCUT SCH ×4 (06:35→21:16)
[2021-12-07 08:00] VITALS: BP 172/69
[2021-12-07] MEDS: POTASSIUM CHLORIDE 8 MEQ TABLET.SA PO SCH (08:47)
[2021-12-07] MEDS: GABAPENTIN 100MG CAPSULE PO SCH (08:48)
[2021-12-07] MEDS: HYDROCHLOROTHIAZIDE 25MG TABLET PO SCH (08:48)
[2021-12-07] MEDS: LABETALOL HCL 200MG TABLET PO SCH ×2 (08:48→17:31)
[2021-12-07] MEDS: LOSARTAN POTASSIUM 25 MG TABLET PO SCH (08:49)
[2021-12-07] MEDS: NIFEDIPINE XL 60MG TAB PO SCH (08:49)
[2021-12-07] MEDS: GLIMEPIRIDE 1MG TABLET PO SCH (08:49)
[2021-12-07] MEDS: ASPIRIN 81MG EC TABLET PO SCH (08:49)
[2021-12-07 12:00] VITALS: BP 142/69
[2021-12-07 16:00] VITALS: BP 149/70
[2021-12-07] MEDS: CLONIDINE 0.1MG TABLET PO SCH (17:31)
[2021-12-07 20:00] VITALS: BP 108/52
[2021-12-08] VITALS (7 sets, daily range): BP systolic 104–170; BP diastolic 46–73
[2021-12-08] MEDS: ACETAMINOPHEN 325MG TABLET PO PRN ×2 (01:03→09:12)
[2021-12-08] MEDS: CLONIDINE 0.1MG TABLET PO SCH ×4 (05:49→21:21)
[2021-12-08] MEDS: OMEPRAZOLE 20MG CAPSULE EXTENDED RELEASE PO SCH (05:50)
[2021-12-08] MEDS: BLOOD SUGAR DIAGNOSTIC STRIP TEST SCH ×4 (06:29→21:00)
[2021-12-08 06:36] LABS: BASOPHILS % 0.4 % (0.0-2.0); HEMATOCRIT. 27.8 % (36.0-48.0); MEAN CORPUSCULAR HEMOGLOBIN 26.6 pg (28.0-32.0); MEAN CORPUSCULAR VOLUME 82.3 fL (81.0-99.0); MEAN PLATELET VOLUME 7.5 fl (7.4-10.4); MONOCYTES % 9.3 % (2.0-8.0); NEUTROPHILS % 49.3 % (40.0-76.0); PLATELET 322 x1000/uL (130-400); RED BLOOD CELL COUNT 3.37 mill/uL (4.2-5.4); RED CELL DISTRIBUTION WIDTH 16.5 % (11.6-14.6)
[2021-12-08 06:40] LABS: CHLORIDE 102 mEq/L (98-107)
[2021-12-08 06:51] LABS: HDL CHOLESTEROL 48 mg/dL (40-59); LDL CHOLESTEROL 65 mg/dL (5-100)
[2021-12-08] MEDS: INSULIN LISPRO 100 UNITS/ML SUBCUT SCH ×4 (07:01→21:25)
[2021-12-08] MEDS: LABETALOL HCL 200MG TABLET PO SCH (09:00)
[2021-12-08] MEDS: NIFEDIPINE XL 60MG TAB PO SCH (09:00)
[2021-12-08] MEDS: HYDROCHLOROTHIAZIDE 25MG TABLET PO SCH (09:00)
[2021-12-08] MEDS: LOSARTAN POTASSIUM 25 MG TABLET PO SCH (09:00)
[2021-12-08] MEDS: POTASSIUM CHLORIDE 8 MEQ TABLET.SA PO SCH (09:11)
[2021-12-08] MEDS: ASPIRIN 81MG EC TABLET PO SCH (09:11)
[2021-12-08] MEDS: GABAPENTIN 100MG CAPSULE PO SCH (09:11)
[2021-12-08] MEDS: GLIMEPIRIDE 1MG TABLET PO SCH (09:11)
[2021-12-08 15:38] LABS: CLARITY URINE CLOUDY (CLEAR); COLOR URINE YELLOW (YELLOW); KETONES URINE NEGATIVE (NEGATIVE); LEUKOCYTE ESTERASE URINE 3+ (NEGATIVE); NITRITE URINE POSITIVE (NEGATIVE); OCCULT BLOOD URINE TRACE (NEGATIVE); PH URINE 5.5 (4.5-8.0); PROTEIN URINE NEGATIVE (NEGATIVE); SPECIFIC GRAVITY URINE 1.019 (1.005-1.030); UROBILINOGEN URINE 0.2 E.U./dL (0.2-1.0)
[2021-12-08] MEDS ORDERED: IOHEXOL-300 100 ML BOTTLE ONE (19:29)
[2021-12-08] MEDS: ATORVASTATIN CALCIUM 40MG TABLET PO SCH (21:21)
[2021-12-09] VITALS (7 sets, daily range): BP systolic 123–164; BP diastolic 50–78
[2021-12-09] MEDS: ACETAMINOPHEN 325MG TABLET PO PRN ×2 (02:32→19:56)
[2021-12-09] MEDS: CLONIDINE 0.1MG TABLET PO SCH ×3 (05:30→21:42)
[2021-12-09] MEDS: BLOOD SUGAR DIAGNOSTIC STRIP TEST SCH ×4 (05:48→20:08)
[2021-12-09] MEDS: INSULIN LISPRO 100 UNITS/ML SUBCUT SCH ×4 (05:48→20:08)
[2021-12-09] MEDS: HYDROCHLOROTHIAZIDE 25MG TABLET PO SCH (09:11)
[2021-12-09] MEDS: NIFEDIPINE XL 60MG TAB PO SCH (09:11)
[2021-12-09] MEDS: POTASSIUM CHLORIDE 8 MEQ TABLET.SA PO SCH (09:12)
[2021-12-09] MEDS: GABAPENTIN 100MG CAPSULE PO SCH (09:12)
[2021-12-09] MEDS: ASPIRIN 81MG EC TABLET PO SCH (09:12)
[2021-12-09] MEDS: LOSARTAN POTASSIUM 25 MG TABLET PO SCH (09:12)
[2021-12-09] MEDS: FAMOTIDINE 20MG TABLET PO SCH (09:12)
[2021-12-09] MEDS: GLIMEPIRIDE 1MG TABLET PO SCH (10:15)
[2021-12-09] MEDS: LABETALOL HCL 100MG TABLET PO SCH (10:16)
[2021-12-09] MEDS ORDERED: CLON0.1T PO (14:55)
[2021-12-09] MEDS ORDERED: HYDR25TA PO (14:55)
[2021-12-09] MEDS ORDERED: LABE100T5 PO (14:55)
[2021-12-09] MEDS ORDERED: NIFE-32 PO (14:55)
[2021-12-09] MEDS: ATORVASTATIN CALCIUM 40MG TABLET PO SCH (19:56)
[2021-12-10] VITALS: BP 126/63
[2021-12-10] MEDS: ACETAMINOPHEN 325MG TABLET PO PRN ×2 (00:29→05:00)
[2021-12-10 04:30] VITALS: BP 166/74
[2021-12-10] MEDS: CLONIDINE 0.1MG TABLET PO SCH ×2 (05:00→13:11)
[2021-12-10] MEDS: BLOOD SUGAR DIAGNOSTIC STRIP TEST SCH ×2 (05:57→11:40)
[2021-12-10] MEDS: INSULIN LISPRO 100 UNITS/ML SUBCUT SCH ×2 (05:58→12:10)
[2021-12-10 08:00] VITALS: BP 169/73
[2021-12-10] MEDS: GLIMEPIRIDE 1MG TABLET PO SCH (08:37)
[2021-12-10] MEDS: ASPIRIN 81MG EC TABLET PO SCH (08:37)
[2021-12-10] MEDS: GABAPENTIN 100MG CAPSULE PO SCH (08:38)
[2021-12-10] MEDS: HYDROCHLOROTHIAZIDE 25MG TABLET PO SCH (08:38)
[2021-12-10] MEDS: LOSARTAN POTASSIUM 25 MG TABLET PO SCH (08:38)
[2021-12-10] MEDS: NIFEDIPINE XL 60MG TAB PO SCH (08:38)
[2021-12-10] MEDS: POTASSIUM CHLORIDE 8 MEQ TABLET.SA PO SCH (08:38)
[2021-12-10] MEDS: FAMOTIDINE 20MG TABLET PO SCH (08:38)
[2021-12-10] MEDS: LABETALOL HCL 100MG TABLET PO SCH (08:38)
[2021-12-10 12:00] VITALS: BP 135/67
[2021-12-10 13:22] VITALS: BP 135/67
[2021-12-20] MEDS ORDERED: FERR325T6 MT (13:37)
== END 2021-12-10 13:40 | disposition home health service (06) | DRG 74 ==
LOC: ER 13:26 → 7EST 17:01 → EDBEDREQTM 17:05 → EDBEDREQ 17:05 → ENRESERV 20:10
PROVIDERS: ADMIT Internal Medicine; ATTEND Internal Medicine
DX: G90.8 Other disorders of autonomic nervous system (principal); N39.0 Urinary tract infection, site not specified; I10 Essential (primary) hypertension; E11.9 Type 2 diabetes mellitus without complications; J44.9 Chronic obstructive pulmonary disease, unspecified; I16.0 Hypertensive urgency; I44.0 Atrioventricular block, first degree; B96.20 Unspecified Escherichia coli [E. coli] as the cause of diseases classified elsewhere; R91.8 Other nonspecific abnormal finding of lung field; I27.20 Pulmonary hypertension, unspecified; I35.8 Other nonrheumatic aortic valve disorders; Z88.0 Allergy status to penicillin; Z88.6 Allergy status to analgesic agent; Z88.8 Allergy status to other drugs, medicaments and biological substances; Z79.4 Long term (current) use of insulin; Z87.891 Personal history of nicotine dependence; Z86.718 Personal history of other venous thrombosis and embolism; Z79.899 Other long term (current) drug therapy; I65.22 Occlusion and stenosis of left carotid artery
CPT/HCPCS: 36415; 70496; 70498; 70551; 71045; 71250; 80048; 80053; 80061; 81003; 82962; 83036; 83605; 83880; 84484; 85025; 87077; 87186; 93005; 93306; 93880; 97162; 97166; 97535; 99285; J1815; J2405; Q9967

== ENCOUNTER 2022-03-07 17:51 | Emergency (ER) | payer MEDICARE, MEDICAID ==
[~2022-03-07] VITALS: Ht 180.3 cm; Wt 69.0 kg
[~2022-03-07 17:51] MED LIST changes: -CEPH250C2 PO; -CEPH500T MT; -CLON1PAT11 TP; +FERR325T6 MT; -HYDR12.54 PO; +HYDR25TA PO; +LABE100T9 PO; -LABE200T9 PO; -NITR-87 MT; -ONDA4TAB11 PO; -P50 MT
[2022-03-07] MEDS ORDERED: KETOROLAC 30MG/ML VIAL IV STA (19:13)
[2022-03-07] MEDS ORDERED: VISCOUS LIDOCAINE 2% 15 ML UDC PO STA (19:13)
[2022-03-07] MEDS ORDERED: ONDANSETRON HCL 4MG/2ML INJ IV STA (19:13)
[2022-03-07] MEDS ORDERED: MAGNESIUM/ALUMINUM HYDROXIDE/SIMETHICONE 30ML UDC PO STA (19:13)
[2022-03-07 23:10] LABS: HEMATOCRIT. 23.9 % (36.0-48.0); HEMOGLOBIN. 7.4 g/dL (12.0-16.0); MEAN CORPUSCULAR HEMOGLOBIN 23.7 pg (28.0-32.0); MEAN CORPUSCULAR VOLUME 76.5 fL (81.0-99.0); PLATELET 275 x1000/uL (130-400); RED BLOOD CELL COUNT 3.13 mill/uL (4.2-5.4); RED CELL DISTRIBUTION WIDTH 17.6 % (11.6-14.6)
[2022-03-07 23:19] LABS: PROTHROMBIN TIME 10.9 sec (9.6-11.0)
[2022-03-07 23:21] LABS: CHLORIDE 99 mEq/L (98-107)
[2022-03-07 23:30] VITALS: BP 134/80
[2022-03-07 23:35] LABS: PLATELET ESTIMATE NORMAL
[2022-03-08 01:05] LABS: CLARITY URINE CLEAR (CLEAR); COLOR URINE YELLOW (YELLOW); KETONES URINE NEGATIVE (NEGATIVE); LEUKOCYTE ESTERASE URINE 1+ (NEGATIVE); NITRITE URINE POSITIVE (NEGATIVE); OCCULT BLOOD URINE NEGATIVE (NEGATIVE); PROTEIN URINE NEGATIVE (NEGATIVE); UROBILINOGEN URINE 0.2 E.U./dL (0.2-1.0)
[2022-03-08] MEDS ORDERED: SULFAMETHOXAZOLE/TRIMETHOPRIM 800/160MG TABLET PO ONE (01:30)
[2022-03-08] MEDS ORDERED: SULF1TAB48 MT (02:23)
[2022-03-08] MEDS ORDERED: BENZ1LOZ73 MT (02:24)
== END 2022-03-08 04:27 | disposition home or self-care (01) ==
LOC: ER 17:51
DX: N39.0 Urinary tract infection, site not specified (principal); R91.8 Other nonspecific abnormal finding of lung field; R19.09 Other intra-abdominal and pelvic swelling, mass and lump; I10 Essential (primary) hypertension; E11.9 Type 2 diabetes mellitus without complications; M19.90 Unspecified osteoarthritis, unspecified site; J44.9 Chronic obstructive pulmonary disease, unspecified; Z88.6 Allergy status to analgesic agent; Z88.5 Allergy status to narcotic agent; Z88.0 Allergy status to penicillin
CPT/HCPCS: 36415; 71045; 74176; 80053; 81003; 83605; 83690; 84484; 85025; 85610; 93005; 96374; 96375; 99285; J1885; J2405

== ENCOUNTER 2022-12-26 12:01 | Emergency (ER) | payer MEDICARE, MEDICAID ==
[~2022-12-26] VITALS: Ht 167.6 cm; Wt 70.0 kg
[~2022-12-26 12:01] MED LIST changes: -AMA1 PO; +BENZ1LOZ73 MT; +CHLO25TA2 PO; +CLON1PAT12 TD; +FAMO20TA8 PO; +GLIM2TAB30 PO; -LABE100T9 PO; +LABE200T9 PO; +LOSA100T33 PO; -LOSA25TA26 PO; +MINO2.5T19 PO; -OMEP20CA14 PO
[2022-12-26 12:10] VITALS: TEMP 98.1; O2SAT 99
[2022-12-26 14:45] LABS: BASOPHILS % 0.4 % (0.0-2.0); EOSINOPHILS % 2.7 % (0.0-5.0); HEMATOCRIT. 36.5 % (36.0-48.0); HEMOGLOBIN. 11.9 g/dL (12.0-16.0); LYMPHOCYTES % 40.3 % (20.0-50.0); MEAN CORPUSCULAR HEMOGLOBIN 29.4 pg (28.0-32.0); MEAN CORPUSCULAR HGB CONC 32.5 g/dL (31.0-37.0); MEAN CORPUSCULAR VOLUME 90.2 fL (81.0-99.0); MEAN PLATELET VOLUME 7.3 fl (7.4-10.4); MONOCYTES % 10.7 % (2.0-8.0); NEUTROPHILS % 45.9 % (40.0-76.0); PLATELET 245 x1000/uL (130-400); RED BLOOD CELL COUNT 4.04 mill/uL (4.2-5.4); RED CELL DISTRIBUTION WIDTH 15.5 % (11.6-14.6); WHITE BLOOD COUNT 4.3 x1000/uL (4.5-11.0)
[2022-12-26] MEDS ORDERED: CLONIDINE 0.1MG TABLET PO NR (14:45)
[2022-12-26 14:50] LABS: CHLORIDE 104 mEq/L (98-107); INDEX HEMOLYSI 1 (1-3); INDEX ICTERIC 1 (1-4); INDEX LIPEMIC 1 (1-3); POTASSIUM 4.2 mEq/L (3.5-5.1); SODIUM 137 mEq/L (136-145)
[2022-12-26 15:02] LABS: ALANINE AMINOTRANSFERASE 35 IU/L (13-61); ALBUMIN 3.7 g/dL (3.4-5.0); ASPARTATE AMINOTRANSFERASE 24 IU/L (15-37); BILIRUBIN TOTAL 0.5 mg/dL (0.1-1.0); CALCIUM 9.6 mg/dL (8.5-10.1); CARBON DIOXIDE 27 mEq/L (21-32); CREATININE 0.4 mg/dL (0.6-1.3); GLUCOSE 104 mg/dL (70-105); NT PRO B-TYPE NATRIURETIC PEP 105 pg/mL (5-125); PROTEIN TOTAL 7.9 g/dL (6.0-8.3); TROPONIN I HIGH SENSITIVITY 6 ng/L (<54); UREA NITROGEN BLOOD 13 mg/dL (7-21)
[2022-12-26 20:15] LABS: CLARITY URINE CLEAR (CLEAR); COLOR URINE YELLOW (YELLOW); GLUCOSE URINE NEGATIVE (NEGATIVE); KETONES URINE NEGATIVE (NEGATIVE); LEUKOCYTE ESTERASE URINE NEGATIVE (NEGATIVE); NITRITE URINE NEGATIVE (NEGATIVE); OCCULT BLOOD URINE NEGATIVE (NEGATIVE); PH URINE 7.5 (4.5-8.0); PROTEIN URINE NEGATIVE (NEGATIVE); SPECIFIC GRAVITY URINE 1.006 (1.005-1.030); UROBILINOGEN URINE 0.2 E.U./dL (0.2-1.0)
[2022-12-26 20:51] VITALS: BP 152/81; PULSE 92; RESP 14
== END 2022-12-26 21:26 | disposition home or self-care (01) ==
LOC: ER 12:30
DX: I16.0 Hypertensive urgency (principal); I10 Essential (primary) hypertension; J44.9 Chronic obstructive pulmonary disease, unspecified; E11.9 Type 2 diabetes mellitus without complications; K21.9 Gastro-esophageal reflux disease without esophagitis; Z79.899 Other long term (current) drug therapy
CPT/HCPCS: 36415; 71045; 80053; 81003; 83880; 84484; 85025; 93005; 99285

== ENCOUNTER 2023-03-01 08:07 | Emergency (ER) | payer MEDICARE, MEDICAID ==
[~2023-03-01] VITALS: Ht 160 cm; Wt 72.0 kg
[2023-03-01 08:08] VITALS: O2SAT 100
[2023-03-01 09:58] LABS: BASOPHILS % 0.5 % (0.0-2.0); EOSINOPHILS % 3.1 % (0.0-5.0); HEMATOCRIT. 40.1 % (36.0-48.0); HEMOGLOBIN. 13.2 g/dL (12.0-16.0); LYMPHOCYTES % 45.2 % (20.0-50.0); MEAN CORPUSCULAR HEMOGLOBIN 29.8 pg (28.0-32.0); MEAN CORPUSCULAR HGB CONC 32.8 g/dL (31.0-37.0); MEAN CORPUSCULAR VOLUME 90.6 fL (81.0-99.0); MEAN PLATELET VOLUME 6.8 fl (7.4-10.4); MONOCYTES % 9.4 % (2.0-8.0); NEUTROPHILS % 41.8 % (40.0-76.0); PLATELET 365 x1000/uL (130-400); RED BLOOD CELL COUNT 4.43 mill/uL (4.2-5.4); RED CELL DISTRIBUTION WIDTH 15.4 % (11.6-14.6); WHITE BLOOD COUNT 2.8 x1000/uL (4.5-11.0)
[2023-03-01 10:18] LABS: ALANINE AMINOTRANSFERASE 28 IU/L (10-49); ALBUMIN 4.6 g/dL (3.2-4.8); ASPARTATE AMINOTRANSFERASE 29 IU/L (<34); BILIRUBIN TOTAL 0.4 mg/dL (0.1-1.0); CALCIUM 10.2 mg/dL (8.7-10.4); CARBON DIOXIDE 28 mEq/L (21-32); CHLORIDE 102 mEq/L (98-107); CREATININE 0.6 mg/dL (0.6-1.0); GLUCOSE 164 mg/dL (70-105); POTASSIUM 3.6 mEq/L (3.5-5.1); SODIUM 137 mEq/L (136-145)
[2023-03-01 10:37] LABS: UREA NITROGEN BLOOD < 5 mg/dL (9-23)
[2023-03-01 12:21] VITALS: BP 139/65; PULSE 72; RESP 17; TEMP 98.2
== END 2023-03-01 12:39 | disposition home or self-care (01) ==
LOC: ER 08:57
DX: I10 Essential (primary) hypertension (principal); E11.9 Type 2 diabetes mellitus without complications; Z88.0 Allergy status to penicillin; Z88.8 Allergy status to other drugs, medicaments and biological substances; Z79.899 Other long term (current) drug therapy
CPT/HCPCS: 36415; 71045; 80053; 85025; 93005; 99285

== ENCOUNTER 2023-05-09 01:21 | Emergency (ER) | payer MEDICARE, MEDICAID ==
[~2023-05-09] VITALS: Ht 165.1 cm; Wt 83.0 kg
[2023-05-09 01:25] VITALS: BP 180/100; PULSE 111; RESP 18; TEMP 98.1; O2SAT 97
[2023-05-09] MEDS ORDERED: METOCLOPRAMIDE HCL 10MG/2ML VIAL IV ONE (02:00)
[2023-05-09 02:05] LABS: BASOPHILS % 0.5 % (0.0-2.0); EOSINOPHILS % 2.9 % (0.0-5.0); HEMATOCRIT. 37.6 % (36.0-48.0); HEMOGLOBIN. 12.5 g/dL (12.0-16.0); LYMPHOCYTES % 41.5 % (20.0-50.0); MEAN CORPUSCULAR HEMOGLOBIN 30.3 pg (28.0-32.0); MEAN CORPUSCULAR HGB CONC 33.3 g/dL (31.0-37.0); MEAN CORPUSCULAR VOLUME 91.1 fL (81.0-99.0); MEAN PLATELET VOLUME 6.9 fl (7.4-10.4); NEUTROPHILS % 45.1 % (40.0-76.0); PLATELET 251 x1000/uL (130-400); RED BLOOD CELL COUNT 4.13 mill/uL (4.2-5.4); RED CELL DISTRIBUTION WIDTH 15.4 % (11.6-14.6); WHITE BLOOD COUNT 4.1 x1000/uL (4.5-11.0)
[2023-05-09 02:15] LABS: PARTIAL THROMBOPLASTIN TIME 28.3 sec (23.4-31.0)
[2023-05-09 02:17] LABS: ALANINE AMINOTRANSFERASE 20 IU/L (10-49); ALBUMIN 4.5 g/dL (3.2-4.8); ASPARTATE AMINOTRANSFERASE 23 IU/L (<34); BILIRUBIN TOTAL 0.4 mg/dL (0.1-1.0); CALCIUM 10.1 mg/dL (8.7-10.4); CARBON DIOXIDE 26 mEq/L (21-32); CHLORIDE 104 mEq/L (98-107); CREATININE 0.6 mg/dL (0.6-1.0); GLUCOSE 147 mg/dL (70-105); POTASSIUM 3.9 mEq/L (3.5-5.1); PROTEIN TOTAL 8.4 g/dL (6.0-8.3); SODIUM 137 mEq/L (136-145); UREA NITROGEN BLOOD 15 mg/dL (9-23)
[2023-05-09 02:40] LABS: CLARITY URINE CLEAR (CLEAR); COLOR URINE YELLOW (YELLOW); GLUCOSE URINE NEGATIVE (NEGATIVE); KETONES URINE NEGATIVE (NEGATIVE); LEUKOCYTE ESTERASE URINE 1+ (NEGATIVE); NITRITE URINE POSITIVE (NEGATIVE); OCCULT BLOOD URINE TRACE (NEGATIVE); PH URINE 7.5 (4.5-8.0); PROTEIN URINE TRACE (NEGATIVE); UROBILINOGEN URINE 0.2 E.U./dL (0.2-1.0)
[2023-05-09 03:21] LABS: TROPONIN I HIGH SENSITIVITY < 4 ng/L (3.0-34)
[2023-05-09 03:41] LABS: WBC URINE 0-2 /hpf (0-2)
[2023-05-09 03:42] LABS: RBC URINE 0-2 /hpf (0-2)
[2023-05-09 03:44] LABS: BACTERIA URINE NONE SEEN; SQUAMOUS EPITHELIAL CELL URINE FEW /lpf (RARE/1+)
[2023-05-09] MEDS ORDERED: NITROFURANTOIN 100MG M/M CAPSULE PO NR (04:30)
[2023-05-09] MEDS ORDERED: NITR-87 MT (04:54)
== END 2023-05-09 07:14 | disposition home or self-care (01) ==
LOC: ER 01:21
DX: N39.0 Urinary tract infection, site not specified (principal); I10 Essential (primary) hypertension; J44.9 Chronic obstructive pulmonary disease, unspecified; E11.9 Type 2 diabetes mellitus without complications; Z98.890 Other specified postprocedural states; Z88.0 Allergy status to penicillin; Z88.8 Allergy status to other drugs, medicaments and biological substances; Z79.899 Other long term (current) drug therapy
CPT/HCPCS: 36415; 71045; 80053; 81003; 83880; 84484; 85025; 93005; 96374; 99285

== ENCOUNTER 2024-01-20 11:01 | Emergency (ER) | payer OTHER, MEDICAID ==
[~2024-01-20] VITALS: Ht 162.6 cm; Wt 60.0 kg
[~2024-01-20 11:01] MED LIST changes: +NITR-87 MT
[2024-01-20 11:03] VITALS: O2SAT 100
[2024-01-20] MEDS: ACETAMINOPHEN 325MG TABLET PO ONE (11:58)
[2024-01-20 12:18] LABS: BASOPHILS % 1.3 % (0.0-2.0); EOSINOPHILS % 2.6 % (0.0-5.0); HEMATOCRIT. 34.8 % (36.0-48.0); HEMOGLOBIN. 11.3 g/dL (12.0-16.0); LYMPHOCYTES % 27.1 % (20.0-50.0); MEAN CORPUSCULAR HEMOGLOBIN 29.7 pg (28.0-32.0); MEAN CORPUSCULAR HGB CONC 32.4 g/dL (31.0-37.0); MEAN CORPUSCULAR VOLUME 91.8 fL (81.0-99.0); MEAN PLATELET VOLUME 7.2 fl (7.4-10.4); MONOCYTES % 9.7 % (2.0-8.0); NEUTROPHILS % 59.3 % (40.0-76.0); PLATELET 433 x1000/uL (130-400); RED BLOOD CELL COUNT 3.79 mill/uL (4.2-5.4); RED CELL DISTRIBUTION WIDTH 14.4 % (11.6-14.6); WHITE BLOOD COUNT 4.3 x1000/uL (4.5-11.0)
[2024-01-20 12:22] LABS: CLARITY URINE CLOUDY (CLEAR); COLOR URINE YELLOW (YELLOW); GLUCOSE URINE 2+ (NEGATIVE); KETONES URINE NEGATIVE (NEGATIVE); LEUKOCYTE ESTERASE URINE 3+ (NEGATIVE); NITRITE URINE POSITIVE (NEGATIVE); OCCULT BLOOD URINE 2+ (NEGATIVE); PROTEIN URINE NEGATIVE (NEGATIVE); UROBILINOGEN URINE 0.2 E.U./dL (0.2-1.0)
[2024-01-20 12:36] LABS: CHLORIDE 102 mEq/L (98-107); POTASSIUM 4.9 mEq/L (3.5-5.1); SODIUM 132 mEq/L (136-145)
[2024-01-20 12:37] LABS: CALCIUM 9.8 mg/dL (8.7-10.4); CARBON DIOXIDE 23 mEq/L (21-32)
[2024-01-20 12:42] LABS: CREATININE 0.7 mg/dL (0.6-1.0); GLUCOSE 220 mg/dL (70-105); UREA NITROGEN BLOOD 14 mg/dL (9-23)
[2024-01-20 12:44] LABS: ALANINE AMINOTRANSFERASE 23 IU/L (10-49); ALBUMIN 4.4 g/dL (3.2-4.8); ASPARTATE AMINOTRANSFERASE 27 IU/L (<34)
[2024-01-20 12:45] LABS: BILIRUBIN TOTAL 0.2 mg/dL (0.1-1.0); PROTEIN TOTAL 7.9 g/dL (6.0-8.3)
[2024-01-20 12:51] LABS: SQUAMOUS EPITHELIAL CELL URINE 1+ /lpf (RARE/1+)
[2024-01-20 12:52] LABS: BACTERIA URINE 4+; RBC URINE 0-2 /hpf (0-2); WBC URINE 15-25 /hpf (0-2)
[2024-01-20] MEDS: ONDANSETRON HCL 4MG/2ML INJ IV STA (12:55)
[2024-01-20] MEDS: KETOROLAC 30MG/ML VIAL IV STA (12:55)
[2024-01-20 13:03] LABS: BILIRUBIN DIRECT < 0.1 mg/dL (<=3.0); ETHANOL BLOOD < 10 mg/dL (<10); TROPONIN I HIGH SENSITIVITY < 4 ng/L (3.0-34)
[2024-01-20 14:11] LABS: PROTHROMBIN TIME 10.9 sec (9.6-11.0)
[2024-01-20] MEDS: MORPHINE SULFATE 4 MG/ML INJ (FOR IV/IM USE) IV ONE (14:15)
[2024-01-20] MEDS: LABETALOL 5MG/ML 4ML INJ IV ONE (14:15)
[2024-01-20] MEDS ORDERED: CEFP200T14 MT (14:39)
[2024-01-20] MEDS: CEFTRIAXONE 1GM/50ML 50 ML IV ONE (14:53)
[2024-01-20 16:49] VITALS: TEMP 36.83628
[2024-01-20 18:15] VITALS: BP 179/99; PULSE 74; RESP 16; O2SAT 98
== END 2024-01-20 18:30 | disposition home or self-care (01) ==
LOC: ER 12:57
DX: N39.0 Urinary tract infection, site not specified (principal); I10 Essential (primary) hypertension; E11.9 Type 2 diabetes mellitus without complications; Z88.0 Allergy status to penicillin; Z88.5 Allergy status to narcotic agent; Z88.6 Allergy status to analgesic agent; Z88.8 Allergy status to other drugs, medicaments and biological substances; Z79.899 Other long term (current) drug therapy
CPT/HCPCS: 80076; 80048; 81003; 80320; 83880; 83690; 85025; 85610; 87086; 87186; 84484; 87077; 36415; 71045; 70450; 74176; 96365; 96375; 99285; J0696; J1885; J3490; J2405; J2270; G0480